=== PATIENT | female | born 1945 | race Caucasian/White ===

== ENCOUNTER → 2017-04-08 | Outpatient (CLI) | payer MEDICARE ==
[2017-04-08 08:14] LABS: CH 31.3; CHCM 32.5; HCT 35.7 % (34.0-46.0); HDW 2.37; HGB 11.6 gm/dL (11.4-16.0); MCH 31.6 pg (25.0-35.0); MCHC 32.6 g/dL (31.0-37.0); MCV 96.7 fL (80.0-100.0); Mean Platelet Volume 6.8; RBC 3.69 m/uL (3.80-5.40); RDW 12.6 % (11.5-15.5); WBC 6.1 k/uL (3.8-10.6)
[2017-04-08 08:48] LABS: Calcium 9.7 mg/dL (8.4-10.2); Potassium 4.6 mmol/L (3.5-5.1); Total Bilirubin 0.5 mg/dL (0.2-1.3); Total Protein 7.2 g/dL (6.3-8.2)
[2017-04-08 13:14] LABS: Hemoglobin A1C 6.4 % (4.2-6.1)
== END | disposition home or self-care (01) ==
LOC: LABWHC1 07:45
PROVIDERS: ATTEND Internal Medicine Critical Care Medicine
DX: E78.5 Hyperlipidemia, unspecified (principal)
CPT/HCPCS: 36415; 80053; 80061; 82306; 83036; 84439; 84443; 85027

== ENCOUNTER 2017-08-15 23:50 | Emergency (ER) | payer MEDICARE ==
[2017-08-15 23:55] VITALS: RESP 18
--- NOTE | 2017-08-16 00:34 | ED ---
Female Urogenital HPI - General Source: patient, family Mode of arrival: wheelchair Limitations: no limitations <Belinda Crowe - Last Filed: 08/16/17 02:07> <Murphy Ruth - Last Filed: 08/26/17 23:04> - General Chief complaint: Urogenital Stated complaint: kidney problems Time Seen by Provider: 08/16/17 00:01 - History of Present Illness Initial comments: 72-year-old female patient presents to emergency department today evaluation of urinary retention and a swelling and fullness near her vagina. Patient states that she has been having issues like this for the last week. She states that today was the worst for the urinary retention, states that she hasn't urinated since sometime this afternoon. States she has had increased fluid intake. She denies any dysuria, hematuria, urinary urgency, or urinary frequency. She denies any abdominal pain, nausea, vomiting, constipation, or diarrhea. Denies any hematochezia or melena. She denies any back pain, fever, chills, dizziness , weakness, headache, or visual disturbance. She is not in any pain. (Belinda Crowe) - Related Data Home Medications Medication Instructions Recorded Confirmed Dorzolamide 2% [Trusopt 2%] 1 drop BOTH EARS BID 06/30/16 08/15/17 Enalapril/Hydrochlorothiazide 1 each PO DAILY 06/30/16 08/15/17 [Vaseretic 10-25 mg] Gemfibrozil [Lopid] 600 mg PO AC-BID 06/30/16 08/15/17 amLODIPine BESYLATE/BENAZEPRIL 1 cap PO DAILY 06/30/16 08/15/17 [amLODIPine BESYLATE/BENAZEPRIL 10-20 mg] metFORMIN HCL [metFORMIN HCL ER] 750 mg PO BID 06/30/16 08/15/17 Previous Rx's Medication Instructions Recorded Albuterol Nebulized [Ventolin 2.5 mg INHALATION Q4H PRN 10 Days 06/30/16 Nebulized] nebu Fluticasone/Salmeterol [Advair 1 inhalation PO BID #1 diskus 06/30/16 500-50 Diskus] Allergies Allergy/AdvReac Type Severity Reaction Status Date / Time No Known Allergies Allergy Verified 08/15/17 23:55 Review of Systems ROS Other: All systems not noted in ROS Statement are negative. <ZulemagisselBelinda Toan - Last Filed: 08/16/17 02:07> ROS Other: All systems not noted in ROS Statement are negative. <Murphy Ruth - Last Filed: 08/26/17 23:04> ROS Statement: Those systems with pertinent positive or pertinent negative responses have been documented in the HPI. Past Medical History Past Medical History: Asthma, COPD, Diabetes Mellitus, Hyperlipidemia, Hypertension History of Any Multi-Drug Resistant Organisms: None Reported Past Surgical History: No Surgical Hx Reported Past Psychological History: No Psychological Hx Reported Smoking Status: Never smoker Past Alcohol Use History: None Reported Past Drug Use History: None Reported <Belinda Crowe - Last Filed: 08/16/17 02:07> General Exam Limitations: no limitations General appearance: alert, in no apparent distress, other (Physical well- developed, well-nourished 72-year-old female patient in no acute distress. Vital signs upon presentation temperature 98F, pulse 78, respirations 18, blood pressure 142/73, pulse ox 97% on room air.) Eye exam: Present: normal appearance, PERRL, EOMI. Absent: scleral icterus, conjunctival injection, periorbital swelling ENT exam: Present: normal exam, normal oropharynx, mucous membranes moist Respiratory exam: Present: normal lung sounds bilaterally. Absent: respiratory distress, wheezes, rales, rhonchi, stridor Cardiovascular Exam: Present: regular rate, normal rhythm, normal heart sounds. Absent: systolic murmur, diastolic murmur, rubs, gallop, clicks GI/Abdominal exam: Present: soft, normal bowel sounds. Absent: distended, tenderness, guarding, rebound, rigid External exam: Present: swelling, other (Patient does have obvious bulging at the inferior vaginal opening. Does appear consistent with rectocele. No evidence of prolapse from the vagina. ). Absent: erythema, lesions, lacerations , ecchymosis Back exam: Present: normal inspection. Absent: CVA tenderness (R), CVA tenderness (L) Neurological exam: Present: alert, oriented X3, CN II-XII intact Psychiatric exam: Present: normal affect, normal mood Skin exam: Present: warm, dry, intact, normal color. Absent: rash <Belinda Crowe - Last Filed: 08/16/17 02:07> Vital Signs 08/15/17 08/16/17 23:53 01:46 Temperature 98 F 97.9 F Pulse Rate 78 77 Respiratory 18 18 Rate Blood Pressure 142/73 146/66 O2 Sat by Pulse 97 96 Oximetry Medical Decision Making <Belinda Crowe - Last Filed: 08/16/17 02:07> <Murphy Ruth - Last Filed: 08/26/17 23:04> - Medical Decision Making 72-year-old female patient presented for evaluation of urinary retention and swelling in her vaginal area. Physical examination did reveal what appears to be a rectocele with no evidence of uterine prolapse. Bladder scan was performed and did show 400 mL of urine. Patient reported attempting to urinate all afternoon without success. We did place a Zhou catheter easily and were able to perform urinalysis. Urinalysis was negative for any acute process. Patient will be discharged home with a Zhou catheter in place. She is instructed to follow up with urology as well as gynecology as soon as possible. She did request Dr. Kay for follow-up. She is instructed to follow-up with her primary care physician for recheck as well as one to 2 days she is instructed to return here immediately for any new, worsening, or concerning symptoms. She verbalizes understanding and agrees with this plan. (Belinda Crowe) I saw this patient in conjunction with the physician assistant basketball coach. I performed independent history and physical exam. Agree with case management. (Muprhy Ruth) - Lab Data Lab Results 08/16/17 Range/Units 00:50 Urine Color Light Yellow Urine Appearance Clear (Clear) Urine pH 5.5 (5.0-8.0) Ur Specific [place] 1.005 (1.001-1.035) Urine Protein Negative (Negative) Urine Glucose (UA) Negative (Negative) Urine Ketones Negative (Negative) Urine Blood Negative (Negative) Urine Nitrite Negative (Negative) Urine Bilirubin Negative (Negative) Urine Urobilinogen <2.0 (<2.0) mg/dL Ur Leukocyte Esterase Negative (Negative) Disposition Time of Disposition: 01:47 <Belinda Crowe - Last Filed: 08/16/17 02:07> <Murphy Ruth - Last Filed: 08/26/17 23:04> Clinical Impression: Rectocele, female, Urinary retention Disposition: HOME SELF-CARE Condition: Good Instructions: Zhou Catheter Placement and Care (ED), Rectocele (ED), Acute Urinary Retention in Women (ED) Additional Instructions: Follow-up with urology and gynecology as soon as possible. Return here immediately for any new, worsening, or concerning symptoms. Referrals: Russel Woodruff DO [Primary Care Provider] - 1-2 days Byron Tubbs MD [STAFF PHYSICIAN] - 1-2 days Timmy Kay MD [STAFF PHYSICIAN] - 1-2 days
[2017-08-16 01:31] LABS: Appearance,Urine Clear (Clear); Bilirubin,Urine Negative (Negative); Glucose,Urine (UA) Negative (Negative); Ketones,Urine Negative (Negative); Leukocyte Esterase,Urine Negative (Negative); Nitrite,Urine Negative (Negative); PH, Urine 5.5 (5.0-8.0); Protein,Urine Negative (Negative); Specific Gravity,Urine 1.005 (1.001-1.035); UA Billing (MACRO vs. MICRO) CHEM; Urobilinogen,Urine <2.0 mg/dL (<2.0)
[2017-08-16 01:47] VITALS: BP 146/66; PULSE 77; TEMP 97.9
== END 2017-08-16 02:16 | disposition home or self-care (01) ==
LOC: EC 23:50
DX: K62.3 Rectal prolapse (principal); R33.9 Retention of urine, unspecified; I10 Essential (primary) hypertension; E11.9 Type 2 diabetes mellitus without complications; E78.5 Hyperlipidemia, unspecified; Z79.84 Long term (current) use of oral hypoglycemic drugs; Z79.899 Other long term (current) drug therapy
CPT/HCPCS: 51702; 51798; 81003; 99284

== ENCOUNTER → 2017-11-12 | Outpatient (CLI) | payer MEDICARE ==
[2017-11-12 09:34] LABS: Basophils # (A) 0.1 k/uL (0-0.2); Basophils % (A) 1 %; Eosinophils # (A) 0.2 k/uL (0-0.7); Eosinophils % (A) 3 %; HCT 38.1 % (34.0-46.0); HGB 12.1 gm/dL (11.4-16.0); Lymphocytes # (A) 2.4 k/uL (1.0-4.8); Lymphocytes % (A) 32 %; MCH 30.3 pg (25.0-35.0); MCHC 31.8 g/dL (31.0-37.0); MCV 95.2 fL (80.0-100.0); Mean Platelet Volume 6.7; Monocytes # (A) 0.5 k/uL (0-1.0); Monocytes % (A) 7 %; Neutrophils # (A) 4.2 k/uL (1.3-7.7); Neutrophils % (A) 55 %; Platelet Count 305 k/uL (150-450); RDW 13.9 % (11.5-15.5); WBC 7.5 k/uL (3.8-10.6)
[2017-11-12 10:07] LABS: Albumin 4.2 g/dL (3.5-5.0); Calcium 10.4 mg/dL (8.4-10.2); Potassium 4.3 mmol/L (3.5-5.1); Total Bilirubin 0.4 mg/dL (0.2-1.3); Total Protein 7.2 g/dL (6.3-8.2)
[2017-11-12 10:24] LABS: T4, Free (Free Thyroxine) 1.69 ng/dL (0.78-2.19)
[2017-11-12 17:41] LABS: Hemoglobin A1C 5.6 % (4.0-6.0)
== END | disposition home or self-care (01) ==
LOC: LABWHC1 09:09
PROVIDERS: ATTEND Internal Medicine Critical Care Medicine
DX: E78.5 Hyperlipidemia, unspecified (principal); I10 Essential (primary) hypertension; E87.1 Hypo-osmolality and hyponatremia; E11.9 Type 2 diabetes mellitus without complications; R53.83 Other fatigue
CPT/HCPCS: 36415; 80053; 82533; 83036; 84439; 84443; 85025

== ENCOUNTER → 2017-12-18 | Outpatient (CLI) | payer MEDICARE ==
[~2017-12-18] MED LIST: COSYNTROPIN 0.25 MG VIAL IM NR; COSYNTROPIN 0.25 MG VIAL IVP NR; SODIUM CHLORIDE 0.9% 500 ML in EMPTY BAG 1 BAG IV PRN
[2017-12-18 09:26] VITALS: BP 165/70; PULSE 85; RESP 16; TEMP 97.9
== END | disposition home or self-care (01) ==
LOC: PROCWHC3 08:30
PROVIDERS: ATTEND Internal Medicine Critical Care Medicine
DX: J45.909 Unspecified asthma, uncomplicated (principal)
CPT/HCPCS: 82533; 82024; 96374; 36415; J0834

== ENCOUNTER 2019-03-29 14:32 | Inpatient (IN) | payer MEDICARE ==
[2019-03-29] MEDS ORDERED: SODIUM CHLORIDE 0.9% 1,000 ML IV ONE (15:26)
--- NOTE | 2019-03-29 15:27 | ED ---
Weakness HPI - General Chief complaint: Weakness Stated complaint: Weakness Time Seen by Provider: 03/29/19 15:26 Source: patient, RN notes reviewed, old records reviewed Mode of arrival: ambulatory Limitations: no limitations - History of Present Illness Initial comments: This is a 73-year-old female the ER for evaluation. Patient presented with daughter for altered mental status history of hyponatremia. Patient herself currently denies any complaints but again this is a poor historian. No recent change in medications. Patient was found down by family today unable to amylase are sent in by her self and not answering questions are probably. History obtained from patient daughter who is at bedside MD Complaint: generalized weakness, lack of energy, difficulty walking -: unknown Location: generalized Severity: mild Severity scale (1-10): 2 Consistency: constant Improves with: none, morning Worsens with: none Associated Symptoms: confusion - Related Data Home Medications Medication Instructions Recorded Confirmed Dorzolamide 2% [Trusopt 2%] 1 drop BOTH EYES BID 06/30/16 03/29/19 Aspirin EC [Ecotrin Low Dose] 81 mg PO DAILY 10/03/17 03/29/19 Cholecalciferol [Vitamin D3 (25 1,000 unit PO DAILY 10/03/17 03/29/19 Mcg = 1000 Iu)] Fluticasone/Salmeterol [Advair 1 puff INHALATION RT-BID 10/03/17 03/29/19 500-50 Diskus] Vits A,C,E/Lutein/Minerals 1 tab PO DAILY 10/03/17 03/29/19 [Ocuvite with Lutein Tablet] Albuterol Nebulized [Ventolin 2.5 mg INHALATION RT-QID 03/29/19 03/29/19 Nebulized] Budesonide/Formoterol Fumarate 1 puff INHALATION RT-BID 03/29/19 03/29/19 [Symbicort 160-4.5 Mcg Inhaler] Montelukast [Singulair] 10 mg PO DAILY 03/29/19 03/29/19 metFORMIN HCL [Glucophage Xr] 750 mg PO DAILY 03/29/19 03/29/19 Previous Rx's Medication Instructions Recorded Lisinopril [Zestril] 20 mg PO DAILY #30 tab 10/05/17 amLODIPine [Norvasc] 10 mg PO DAILY #30 tab 10/05/17 Allergies Allergy/AdvReac Type Severity Reaction Status Date / Time No Known Allergies Allergy Verified 03/29/19 16:11 Review of Systems ROS Statement: Those systems with pertinent positive or pertinent negative responses have been documented in the HPI. ROS Other: All systems not noted in ROS Statement are negative. Past Medical History Past Medical History: Asthma, COPD, Diabetes Mellitus, Hyperlipidemia, Hypertension Additional Past Medical History / Comment(s): Chronic renal failure, bronchial asthma, chronic anemia, macular degeneration, glaucoma , hypertension, hyperlipidemia History of Any Multi-Drug Resistant Organisms: None Reported Past Surgical History: No Surgical Hx Reported Past Psychological History: No Psychological Hx Reported Smoking Status: Never smoker General Exam Limitations: altered mental status General appearance: alert, in no apparent distress Head exam: Present: atraumatic, normocephalic, normal inspection Eye exam: Present: normal appearance, PERRL, EOMI. Absent: scleral icterus, conjunctival injection, periorbital swelling ENT exam: Present: normal exam, mucous membranes moist Neck exam: Present: normal inspection. Absent: tenderness, meningismus, lymphadenopathy Respiratory exam: Present: normal lung sounds bilaterally. Absent: respiratory distress, wheezes, rales, rhonchi, stridor Cardiovascular Exam: Present: regular rate, normal rhythm, normal heart sounds. Absent: systolic murmur, diastolic murmur, rubs, gallop, clicks GI/Abdominal exam: Present: soft, normal bowel sounds. Absent: distended, tenderness, guarding, rebound, rigid Extremities exam: Present: normal inspection, full ROM, normal capillary refill. Absent: tenderness, pedal edema, joint swelling, calf tenderness Back exam: Present: normal inspection Neurological exam: Present: alert, oriented X3, CN II-XII intact Psychiatric exam: Present: normal affect, normal mood Skin exam: Present: warm, dry, intact, normal color. Absent: rash Course Vital Signs 03/29/19 03/29/19 03/29/19 14:35 15:12 18:06 Temperature 98.4 F Pulse Rate 98 89 86 Respiratory 20 18 18 Rate Blood Pressure 115/77 160/75 156/69 O2 Sat by Pulse 96 98 Oximetry - Reevaluation(s) Reevaluation #1: 03/29/19 18:55 Neck record reviewed Reevaluation #2: 03/29/19 18:55 Family at bedside spoke with family patient's daughter states patient is returned to baseline currently. Patient himself remains without complaint although also remains poor historian EKG Findings - EKG Comments: EKG Findings:: EKG shows normal sinus rhythm rate of 89, OK 160, QRS 126, QTc 511 Medical Decision Making - Medical Decision Making 73 female the ER for evaluation of weakness found down, patient is mildly elevated troponin will admit for trending of troponin. Otherwise electrodes CT brain negative for acute disease no traumatic injury noted on x-ray. Patient's mental status is currently improving - Lab Data Result diagrams: 03/29/19 16:20 03/29/19 16:20 Lab Results 03/29/19 03/29/19 03/29/19 Range/Units 15:27 16:20 16:20 WBC 8.5 (3.8-10.6) k/uL RBC 3.88 (3.80-5.40) m/uL Hgb 12.1 (11.4-16.0) gm/dL Hct 36.4 (34.0-46.0) % MCV 93.8 (80.0-100.0) fL MCH 31.1 (25.0-35.0) pg MCHC 33.1 (31.0-37.0) g/dL RDW 13.6 (11.5-15.5) % Plt Count 332 (150-450) k/uL Neutrophils % 79 % Lymphocytes % 13 % Monocytes % 5 % Eosinophils % 1 % Basophils % 1 % Neutrophils # 6.7 (1.3-7.7) k/uL Lymphocytes # 1.1 (1.0-4.8) k/uL Monocytes # 0.5 (0-1.0) k/uL Eosinophils # 0.1 (0-0.7) k/uL Basophils # 0.1 (0-0.2) k/uL PT (9.0-12.0) sec INR (<1.2) APTT (22.0-30.0) sec Sodium (137-145) mmol/L Potassium (3.5-5.1) mmol/L Chloride (98-107) mmol/L Carbon Dioxide (22-30) mmol/L Anion Gap mmol/L BUN (7-17) mg/dL Creatinine (0.52-1.04) mg/dL Est GFR (CKD-EPI)AfAm (>60 ml/min/1.73 sqM) Est GFR (CKD-EPI)NonAf (>60 ml/min/1.73 sqM) Glucose (74-99) mg/dL POC Glucose (mg/dL) 236 H (75-99) mg/dL POC Glu Riveter Helper ID Gwen Villalba Calcium (8.4-10.2) mg/dL Phosphorus (2.5-4.5) mg/dL Magnesium (1.6-2.3) mg/dL Total Bilirubin (0.2-1.3) mg/dL AST (14-36) U/L ALT (9-52) U/L Alkaline Phosphatase (38-126) U/L Ammonia <9 (<30) umol/L Creatine Kinase (30-135) U/L Troponin I (0.000-0.034) ng/mL Total Protein (6.3-8.2) g/dL Albumin (3.5-5.0) g/dL Urine Color Urine Appearance (Clear) Urine pH (5.0-8.0) Ur Specific [place] (1.001-1.035) Urine Protein (Negative) Urine Glucose (UA) (Negative) Urine Ketones (Negative) Urine Blood (Negative) Urine Nitrite (Negative) Urine Bilirubin (Negative) Urine Urobilinogen (<2.0) mg/dL Ur Leukocyte Esterase (Negative) Urine WBC (0-5) /hpf Ur Squamous Epith Cells (0-4) /hpf Urine Mucus (None) /hpf Urine Opiates Screen (NotDetected) Ur Oxycodone Screen (NotDetected) Urine Methadone Screen (NotDetected) Ur Propoxyphene Screen (NotDetected) Ur Barbiturates Screen (NotDetected) U Tricyclic Antidepress (NotDetected) Ur Phencyclidine Scrn (NotDetected) Ur Amphetamines Screen (NotDetected) U Methamphetamines Scrn (NotDetected) U Benzodiazepines Scrn (NotDetected) Urine Cocaine Screen (NotDetected) U Marijuana (THC) Screen (NotDetected) 03/29/19 03/29/19 03/29/19 Range/Units 16:20 16:20 16:20 WBC (3.8-10.6) k/uL RBC (3.80-5.40) m/uL Hgb (11.4-16.0) gm/dL Hct (34.0-46.0) % MCV (80.0-100.0) fL MCH (25.0-35.0) pg MCHC (31.0-37.0) g/dL RDW (11.5-15.5) % Plt Count (150-450) k/uL Neutrophils % % Lymphocytes % % Monocytes % % Eosinophils % % Basophils % % Neutrophils # (1.3-7.7) k/uL Lymphocytes # (1.0-4.8) k/uL Monocytes # (0-1.0) k/uL Eosinophils # (0-0.7) k/uL Basophils # (0-0.2) k/uL PT 10.0 (9.0-12.0) sec INR 0.9 (<1.2) APTT 21.6 L (22.0-30.0) sec Sodium 140 (137-145) mmol/L Potassium 4.0 (3.5-5.1) mmol/L Chloride 107 (98-107) mmol/L Carbon Dioxide 26 (22-30) mmol/L Anion Gap 7 mmol/L BUN 23 H (7-17) mg/dL Creatinine 1.19 H (0.52-1.04) mg/dL Est GFR (CKD-EPI)AfAm 52 (>60 ml/min/1.73 sqM) Est GFR (CKD-EPI)NonAf 45 (>60 ml/min/1.73 sqM) Glucose 229 H (74-99) mg/dL POC Glucose (mg/dL) (75-99) mg/dL POC Glu Riveter Helper ID Calcium 9.7 (8.4-10.2) mg/dL Phosphorus 2.6 (2.5-4.5) mg/dL Magnesium 1.6 (1.6-2.3) mg/dL Total Bilirubin 0.3 (0.2-1.3) mg/dL AST 24 (14-36) U/L ALT 16 (9-52) U/L Alkaline Phosphatase 76 (38-126) U/L Ammonia (<30) umol/L Creatine Kinase 199 H (30-135) U/L Troponin I 0.047 H* (0.000-0.034) ng/mL Total Protein 6.6 (6.3-8.2) g/dL Albumin 3.9 (3.5-5.0) g/dL Urine Color Urine Appearance (Clear) Urine pH (5.0-8.0) Ur Specific [place] (1.001-1.035) Urine Protein (Negative) Urine Glucose (UA) (Negative) Urine Ketones (Negative) Urine Blood (Negative) Urine Nitrite (Negative) Urine Bilirubin (Negative) Urine Urobilinogen (<2.0) mg/dL Ur Leukocyte Esterase (Negative) Urine WBC (0-5) /hpf Ur Squamous Epith Cells (0-4) /hpf Urine Mucus (None) /hpf Urine Opiates Screen (NotDetected) Ur Oxycodone Screen (NotDetected) Urine Methadone Screen (NotDetected) Ur Propoxyphene Screen (NotDetected) Ur Barbiturates Screen (NotDetected) U Tricyclic Antidepress (NotDetected) Ur Phencyclidine Scrn (NotDetected) Ur Amphetamines Screen (NotDetected) U Methamphetamines Scrn (NotDetected) U Benzodiazepines Scrn (NotDetected) Urine Cocaine Screen (NotDetected) U Marijuana (THC) Screen (NotDetected) 03/29/19 Range/Units 16:48 WBC (3.8-10.6) k/uL RBC (3.80-5.40) m/uL Hgb (11.4-16.0) gm/dL Hct (34.0-46.0) % MCV (80.0-100.0) fL MCH (25.0-35.0) pg MCHC (31.0-37.0) g/dL RDW (11.5-15.5) % Plt Count (150-450) k/uL Neutrophils % % Lymphocytes % % Monocytes % % Eosinophils % % Basophils % % Neutrophils # (1.3-7.7) k/uL Lymphocytes # (1.0-4.8) k/uL Monocytes # (0-1.0) k/uL Eosinophils # (0-0.7) k/uL Basophils # (0-0.2) k/uL PT (9.0-12.0) sec INR (<1.2) APTT (22.0-30.0) sec Sodium (137-145) mmol/L Potassium (3.5-5.1) mmol/L Chloride (98-107) mmol/L Carbon Dioxide (22-30) mmol/L Anion Gap mmol/L BUN (7-17) mg/dL Creatinine (0.52-1.04) mg/dL Est GFR (CKD-EPI)AfAm (>60 ml/min/1.73 sqM) Est GFR (CKD-EPI)NonAf (>60 ml/min/1.73 sqM) Glucose (74-99) mg/dL POC Glucose (mg/dL) (75-99) mg/dL POC Glu Riveter Helper ID Calcium (8.4-10.2) mg/dL Phosphorus (2.5-4.5) mg/dL Magnesium (1.6-2.3) mg/dL Total Bilirubin (0.2-1.3) mg/dL AST (14-36) U/L ALT (9-52) U/L Alkaline Phosphatase (38-126) U/L Ammonia (<30) umol/L Creatine Kinase (30-135) U/L Troponin I (0.000-0.034) ng/mL Total Protein (6.3-8.2) g/dL Albumin (3.5-5.0) g/dL Urine Color Yellow Urine Appearance Clear (Clear) Urine pH 6.0 (5.0-8.0) Ur Specific [place] 1.014 (1.001-1.035) Urine Protein 1+ H (Negative) Urine Glucose (UA) 1+ H (Negative) Urine Ketones Negative (Negative) Urine Blood Negative (Negative) Urine Nitrite Negative (Negative) Urine Bilirubin Negative (Negative) Urine Urobilinogen <2.0 (<2.0) mg/dL Ur Leukocyte Esterase Negative (Negative) Urine WBC 1 (0-5) /hpf Ur Squamous Epith Cells <1 (0-4) /hpf Urine Mucus Rare H (None) /hpf Urine Opiates Screen Not Detected (NotDetected) Ur Oxycodone Screen Not Detected (NotDetected) Urine Methadone Screen Not Detected (NotDetected) Ur Propoxyphene Screen Not Detected (NotDetected) Ur Barbiturates Screen Not Detected (NotDetected) U Tricyclic Antidepress Not Detected (NotDetected) Ur Phencyclidine Scrn Not Detected (NotDetected) Ur Amphetamines Screen Not Detected (NotDetected) U Methamphetamines Scrn Not Detected (NotDetected) U Benzodiazepines Scrn Not Detected (NotDetected) Urine Cocaine Screen Not Detected (NotDetected) U Marijuana (THC) Screen Not Detected (NotDetected) - Radiology Data Radiology results: report reviewed (CT brain x-ray chest and pelvis is negative for traumatic injury), image reviewed Disposition Clinical Impression: Dehydration, Weakness, Altered mental state, Elevated troponin Disposition: ADMITTED IP TO THIS [facility] Condition: Fair Is patient prescribed a controlled substance at d/c from ED?: No
[2019-03-29 15:29] LABS: Glucose,Whole Blood 236 mg/dL (75-99)
--- NOTE | 2019-03-29 15:56 | CT ---
EXAMINATION TYPE: CT brain wo con DATE OF EXAM: 03/29/2019 COMPARISON: None HISTORY: Altered mental status. CT DLP: 1092.9 mGycm Automated exposure control for dose reduction was used. FINDINGS: Nasal septal deviation noted there is intracranial atherosclerotic changes. Moderate generalized dege nerative change with diffuse low-attenuation the white matter. No acute hemorrhage or mass effect. Ca lvarium intact. Hyperostosis of the frontal bone noted. IMPRESSION: NO ACUTE HEMORRHAGE. DEGENERATIVE AND NONSPECIFIC WHITE MATTER CHANGES MOST TYPICAL REMOTE MICROVASCU LAR ISCHEMIA. IF THERE IS CONCERN FOR ACUTE ISCHEMIA CORRELATE WITH MRI CLINICALLY WARRANTED.
[2019-03-29 16:32] LABS: Basophils # (A) 0.1 k/uL (0-0.2); Basophils % (A) 1 %; Eosinophils # (A) 0.1 k/uL (0-0.7); Eosinophils % (A) 1 %; HCT 36.4 % (34.0-46.0); HGB 12.1 gm/dL (11.4-16.0); Lymphocytes # (A) 1.1 k/uL (1.0-4.8); Lymphocytes % (A) 13 %; MCH 31.1 pg (25.0-35.0); MCHC 33.1 g/dL (31.0-37.0); MCV 93.8 fL (80.0-100.0); Mean Platelet Volume 6.6; Monocytes # (A) 0.5 k/uL (0-1.0); Monocytes % (A) 5 %; Neutrophils # (A) 6.7 k/uL (1.3-7.7); Neutrophils % (A) 79 %; Platelet Count 332 k/uL (150-450); RBC 3.88 m/uL (3.80-5.40); RDW 13.6 % (11.5-15.5); WBC 8.5 k/uL (3.8-10.6)
[2019-03-29 16:45] LABS: Albumin 3.9 g/dL (3.5-5.0); Calcium 9.7 mg/dL (8.4-10.2); Magnesium 1.6 mg/dL (1.6-2.3); Phosphorus 2.6 mg/dL (2.5-4.5); Total Bilirubin 0.3 mg/dL (0.2-1.3); Total Protein 6.6 g/dL (6.3-8.2)
[2019-03-29 16:47] LABS: INR 0.9 (<1.2)
[2019-03-29 17:01] LABS: Appearance,Urine Clear (Clear); Bilirubin,Urine Negative (Negative); Blood,Urine Negative (Negative); Color,Urine Yellow; Glucose,Urine (UA) 1+ (Negative); Ketones,Urine Negative (Negative); Leukocyte Esterase,Urine Negative (Negative); Mucus,Urine Rare /hpf; Nitrite,Urine Negative (Negative); Protein,Urine 1+ (Negative); Specific Gravity,Urine 1.014 (1.001-1.035); Squamous Epithelial Cell,Urine <1 /hpf (0-4); Urobilinogen,Urine <2.0 mg/dL (<2.0)
[2019-03-29 17:02] LABS: Partial Thromboplastin Time 21.6 sec (22.0-30.0)
--- NOTE | 2019-03-29 17:16 | XR ---
EXAMINATION TYPE: XR pelvis AP view DATE OF EXAM: 03/29/2019 COMPARISON: NONE HISTORY: Pain after falling TECHNIQUE: Single view FINDINGS: Pelvic ring is intact. Proximal femurs and hip joints are intact. There is no sign of hip d ysplasia. Sacroiliac joints are intact. IMPRESSION: No acute abnormality of the pelvis.
--- NOTE | 2019-03-29 17:17 | XR ---
EXAMINATION TYPE: XR chest 1V DATE OF EXAM: 03/29/2019 COMPARISON: 10/03/2017 HISTORY: Weakness TECHNIQUE: Single frontal view of the chest is obtained. FINDINGS: There is no heart failure nor confluent pneumonic infiltrate. Costophrenic angles are aparna r. Thoracic aorta is atheromatous. There are chest leads. Bony thorax is intact. IMPRESSION: No active cardiopulmonary disease. Normal heart. Atheromatous aorta. No change.
[2019-03-29 17:25] LABS: Amphetamine Screen,Urine Not Detected (NotDetected); Barbiturate Screen,Urine Not Detected (NotDetected); Benzodiazepines Screen,Urine Not Detected (NotDetected); Cocaine Screen,Urine Not Detected (NotDetected); Methadone Screen, Urine Not Detected (NotDetected); Opiate Screen,Urine Not Detected (NotDetected); Oxycodone Screen, Urine Not Detected (NotDetected); Phencyclidine Screen,Urine Not Detected (NotDetected); Tricyclic Antidepressant,Urine Not Detected (NotDetected); Urn Cannabinoid Scrn Not Detected (NotDetected)
[2019-03-29] MEDS ORDERED: ASPIRIN 81 MG PO STA (17:40)
[2019-03-29] MEDS ORDERED: NITROGLYCERIN SL TABS 0.4 MG TAB SUBLINGUAL PRN (17:40)
[2019-03-29] MEDS: SODIUM CHLORIDE 0.9% 1,000 ML IV SCH (18:03)
[2019-03-29 20:25] VITALS: BMI 24.3
[2019-03-29 21:04] LABS: Glucose,Whole Blood 113 mg/dL (75-99)
[2019-03-30 01:11] LABS: Cholesterol 205 mg/dL (<200); HDL Cholesterol 49 mg/dL (40-60); LDL Cholesterol,Calculated 137 mg/dL (0-99); Triglycerides 94 mg/dL (<150)
[2019-03-30 06:40] LABS: Glucose,Whole Blood 97 mg/dL (75-99)
[2019-03-30] MEDS ORDERED: NON-FORMULARY DRUG (Fluticasone/Salmeterol [Advair 500-50 Diskus] 1 PUFF) INHALATION SCH (08:00)
[2019-03-30] MEDS: SODIUM CHLORIDE 0.9% 1,000 ML IV SCH ×2 (08:30→10:01)
[2019-03-30] MEDS: MONTELUKAST 10 MG TAB PO SCH (08:33)
[2019-03-30] MEDS: metFORMIN 500 MG TAB PO SCH ×2 (08:33→20:13)
[2019-03-30] MEDS: CHOLECALCIFEROL 1,000 UNIT TAB PO SCH (08:33)
[2019-03-30] MEDS: ATORVASTATIN 80 MG TAB PO SCH (08:34)
[2019-03-30] MEDS: amLODIPine 10 MG TAB PO SCH (08:34)
[2019-03-30] MEDS: LISINOPRIL 20 MG TAB PO SCH (08:34)
[2019-03-30] MEDS: DORZOLAMIDE HCL 2% DROPS 10 ML BTL BOTH EYES SCH ×2 (08:35→20:13)
[2019-03-30] MEDS: SYMBICORT 160-4.5 MCG INHALER INHALATION SCH ×2 (08:41→19:00)
[2019-03-30] MEDS: ALBUTEROL NEBULIZED 2.5 MG/3 ML INHALATION SCH ×4 (08:41→19:00)
--- NOTE | 2019-03-30 08:53 | P.CRDCN ---
History of Present Illness Consult date: 03/30/19 Requesting physician: Karolina Saul Reason for Consult (text): abn trop Chief complaint: Fall, mental status changes History of present illness: This is a pleasant 73-year-old female with history of hypertension, diabetes, hyperlipidemia, asthma, COPD, chronic anemia, who had a hospit alization a few years ago because of hyponatremia. She lives with her daughter. Patient apparently had fell or slipped out of her bed, she was found on the floor, family noted that her mental status was not as her usual. According to the daughter it reminded her of when her moms sodium was low in the past. For this reason they brought her to the emergency room for further evaluation and treatment. Patient denies having any dizziness or lightheadedness, no chest discomfort, she is unsure exactly of what happened. A CAT scan of the brain was performed on arrival here which did not reveal any acute hemorrhage. Nonspecific white matter changes most typical of remote microvascular ischemia noted. Chest x-ray did not reveal any active cardiopulmonary disease. X-ray of the pelvis did not reveal any acute abnormality. EKG on presentation here showed a normal sinus rhythm with a right bundle branch block pattern and nonspecific ST-T wave changes. I pressure on arrival here 115/77 with a heart rate in the 90s, 96% on room air. I pressure this morning 162/74 with a heart rate in the 80s, 96% on room air. Blood cell count is normal, hemoglobin 12.1, platelet count 332. Sodium 140, potassium 4.0, BUN 23 and creatinine 1.1. Troponins 0.047, 0.045, 0.034. Cholesterol 205, LDL 137, HDL 49 and triglycerides 94. At the time of my examination this morning, the patient is sitting up in her chair at bedside, daughter is present. She is alert and oriented 3, denies any dizziness or lightheadedness, no chest discomfort, no palpitations or shortness of breath. Cardiology consultation was requested because of abnormality in troponin. Past Medical History Past Medical History: Asthma, COPD, Diabetes Mellitus, Hyperlipidemia, Hypertension Additional Past Medical History / Comment(s): Chronic renal failure, bronchial asthma, chronic anemia, macular degeneration, glaucoma , hypertension, hyperlipidemia History of Any Multi-Drug Resistant Organisms: None Reported Past Surgical History: No Surgical Hx Reported Past Anesthesia/Blood Transfusion Reactions: No Reported Reaction Past Psychological History: No Psychological Hx Reported Smoking Status: Never smoker Past Alcohol Use History: None Reported Past Drug Use History: None Reported - Past Family History Mother Family Medical History: CVA/TIA Father Family Medical History: Coronary Artery Disease (CAD) Medications and Allergies Home Medications Medication Instructions Recorded Confirmed Type Dorzolamide 2% [Trusopt 2%] 1 drop BOTH EYES BID 06/30/16 03/29/19 History Aspirin EC [Ecotrin Low Dose] 81 mg PO DAILY 10/03/17 03/29/19 History Cholecalciferol [Vitamin D3 (25 1,000 unit PO DAILY 10/03/17 03/29/19 History Mcg = 1000 Iu)] Fluticasone/Salmeterol [Advair 1 puff INHALATION RT-BID 10/03/17 03/29/19 History 500-50 Diskus] Vits A,C,E/Lutein/Minerals 1 tab PO DAILY 10/03/17 03/29/19 History [Ocuvite with Lutein Tablet] Lisinopril [Zestril] 20 mg PO DAILY #30 tab 10/05/17 03/29/19 Rx amLODIPine [Norvasc] 10 mg PO DAILY #30 tab 10/05/17 03/29/19 Rx Albuterol Nebulized [Ventolin 2.5 mg INHALATION RT-QID 03/29/19 03/29/19 History Nebulized] Budesonide/Formoterol Fumarate 1 puff INHALATION RT-BID 03/29/19 03/29/19 History [Symbicort 160-4.5 Mcg Inhaler] Montelukast [Singulair] 10 mg PO DAILY 03/29/19 03/29/19 History metFORMIN HCL [Glucophage Xr] 750 mg PO BID 03/29/19 03/29/19 History Allergies Allergy/AdvReac Type Severity Reaction Status Date / Time No Known Allergies Allergy Verified 03/29/19 16:11 Physical Exam Vitals: Vital Signs Temp Pulse Pulse Resp BP BP Pulse Ox 03/30/19 08:00 98.1 F 86 18 162/75 96 03/30/19 04:00 98.2 F 80 18 163/70 92 L 03/30/19 00:00 98.5 F 76 18 146/75 96 03/29/19 20:00 98.7 F 86 18 186/87 96 03/29/19 18:06 86 18 156/69 03/29/19 15:12 89 18 160/75 98 03/29/19 14:35 98.4 F 98 20 115/77 96 Intake and Output 03/29/19 03/30/19 03/30/19 22:59 06:59 14:59 Output Total 900 Balance -900 Output: Urine 900 Straight 900 Other: Voiding Method Toilet Toilet Toilet Diaper Diaper Diaper Incontinent Incontinent Incontinent # Voids 3 Weight 68.5 kg PHYSICAL EXAMINATION: GENERAL: 73-year-old female in no acute distress at the time of my examination HEENT: Head is atraumatic, normocephalic. Pupils equal, round. Sclera anicteric. Conjunctiva are clear. Mucous membranes of the mouth are moist. Neck is supple. There is no elevated jugular venous pressure.No Carotid bruit is heard. HEART EXAMINATION: Heart S1 and S2 1 systolic murmur is heard CHEST EXAMINATION: Lungs are clear to auscultation and precussion. No chest wall tenderness is noted on palpation or with deep breathing. ABDOMEN: Soft, nontender. Bowel sounds are heard. No organomegaly noted. EXTREMITIES: 2+ peripheral pulses with no evidence of peripheral edema and no calf tenderness noted. NEUROLOGIC patient is awake, alert and oriented 3 . . Results 03/29/19 16:20 03/29/19 16:20 Cardiac Enzymes 03/29/19 03/29/19 03/29/19 Range/Units 16:20 16:20 22:11 AST 24 (14-36) U/L Troponin I 0.047 H* 0.045 H* (0.000-0.034) ng/mL 03/30/19 Range/Units 04:06 AST (14-36) U/L Troponin I 0.034 (0.000-0.034) ng/mL Coagulation 03/29/19 Range/Units 16:20 PT 10.0 (9.0-12.0) sec APTT 21.6 L (22.0-30.0) sec Lipids 03/29/19 Range/Units 16:20 Triglycerides 94 (<150) mg/dL Cholesterol 205 H (<200) mg/dL HDL Cholesterol 49 (40-60) mg/dL CBC 03/29/19 Range/Units 16:20 WBC 8.5 (3.8-10.6) k/uL RBC 3.88 (3.80-5.40) m/uL Hgb 12.1 (11.4-16.0) gm/dL Hct 36.4 (34.0-46.0) % Plt Count 332 (150-450) k/uL Comprehensive Metabolic Panel 03/29/19 Range/Units 16:20 Sodium 140 (137-145) mmol/L Potassium 4.0 (3.5-5.1) mmol/L Chloride 107 (98-107) mmol/L Carbon Dioxide 26 (22-30) mmol/L BUN 23 H (7-17) mg/dL Creatinine 1.19 H (0.52-1.04) mg/dL Glucose 229 H (74-99) mg/dL Calcium 9.7 (8.4-10.2) mg/dL AST 24 (14-36) U/L ALT 16 (9-52) U/L Alkaline Phosphatase 76 (38-126) U/L Total Protein 6.6 (6.3-8.2) g/dL Albumin 3.9 (3.5-5.0) g/dL Current Medications Generic Name Dose Route Start Last Admin Trade Name Freq PRN Reason Stop Dose Admin Albuterol Sulfate 2.5 mg 03/30/19 08:00 Ventolin Nebulized INHALATION RT-QID [facility] Amlodipine Besylate 10 mg 03/30/19 09:00 Norvasc PO DAILY [facility] Aspirin 325 mg 03/30/19 09:00 Aspirin PO DAILY [facility] Atorvastatin Calcium 80 mg 03/30/19 09:00 Lipitor PO DAILY [facility] Budesonide/Formoterol Fumarate 1 puff 03/30/19 08:00 Symbicort 160-4.5 Mcg Inhaler INHALATION RT-BID [facility] Cholecalciferol 1,000 unit 03/30/19 09:00 Vitamin D3 (25 Mcg = 1000 Iu) PO DAILY [facility] Dorzolamide HCl 1 drops 03/30/19 09:00 Trusopt BOTH EYES BID [facility] Sodium Chloride 1,000 mls @ 100 mls/hr 03/29/19 17:45 03/30/19 08:30 Saline 0.9% IV Not Given .Q10H [facility] Lisinopril 20 mg 03/30/19 09:00 Zestril PO DAILY [facility] Metformin HCl 1,000 mg 03/30/19 09:00 Glucophage PO BID [facility] Montelukast Sodium 10 mg 03/30/19 09:00 Singulair PO DAILY [facility] Nitroglycerin 0.4 mg 03/29/19 17:40 Nitrostat SUBLINGUAL Q5M PRN Chest Pain Intake and Output 03/29/19 03/30/19 03/30/19 22:59 06:59 14:59 Output Total 900 Balance -900 Output: Urine 900 Straight 900 Other: Voiding Method Toilet Toilet Toilet Diaper Diaper Diaper Incontinent Incontinent Incontinent # Voids 3 Weight 68.5 kg 03/29/19 16:20 03/29/19 16:20 EKG Interpretations (text) EKG shows normal sinus rhythm with a right bundle branch block pattern and nonspecific ST-T wave changes. Assessment and Plan Plan: Assessment and plan #1 mental status changes with a questionable fall versus syncope. CAT scan of the brain did not reveal any acute finding #2 hypertension history #3 mildly abnormal troponin, not suggestive of acute coronary syndrome with a significant rise and fall pattern, patient denies having any chest discomfort. #4 diabetes #5 hyperlipidemia #6 mild dementia #7 mildly hydration #8 history of hyponatremia in the past Plan Will obtain an echocardiogram with Doppler study. Decrease aspirin to 81 mg daily, continue Lipitor, Zestril. Patient also has received hydration and is currently getting IV fluids at 100 mL per hour. We'll check orthostatic heart rate and blood pressure every shift. Further recommendations to follow. DNP note has been reviewed, I agree with a documented findings and plan of care. Patient was seen and examined.
[2019-03-30] MEDS ORDERED: NON-FORMULARY DRUG (Aspirin Ec 81 MG) PO SCH (09:00)
[2019-03-30] MEDS ORDERED: ASPIRIN 325 MG TAB PO SCH (09:00)
[2019-03-30] MEDS: ASPIRIN 81 MG PO SCH (09:41)
[2019-03-30 11:53] LABS: Glucose,Whole Blood 148 mg/dL (75-99)
--- NOTE | 2019-03-30 13:51 | P.CNNES ---
History of Present Illness Consult date: 03/30/19 Reason for Consult: Altered mental status History of Present Illness: Patient is a 73-year-old female with history of diabetes, states that she a pparently fell out of bed on the floor at 7:30 AM yesterday (wakes up usually at 9 AM). Patient denies loss of consciousness, but does not remember how she got to the floor. She states she probably stood up to go to the bathroom, but somehow she fell. Patient lost control of stools. There was no tongue bite. Patient's daughter felt it was low sugar, gave her some food to eat, and she didn't feel better. However patient's daughter did not check her blood sugar at that time. There were no reported stroke like symptoms, like facial droop, slurred speech, problem with the vision, numbness tingling or focal weakness. Patient does have diabetes for 20 years. No history of seizures. Patient has COPD. Patient does get dizzy sometimes if she bends over and comes up too fast. Patient does have balance issues and always uses an assistive device, either walker or a cane. Patient takes metformin 1000 mg twice a day. Patient believes that she did take her dinner the night prior. Past Medical History Past Medical History: Asthma, COPD, Diabetes Mellitus, Hyperlipidemia, Hypertension Additional Past Medical History / Comment(s): Chronic renal failure, bronchial asthma, chronic anemia, macular degeneration, glaucoma , hypertension, hyperlipidemia History of Any Multi-Drug Resistant Organisms: None Reported Past Surgical History: No Surgical Hx Reported Past Anesthesia/Blood Transfusion Reactions: No Reported Reaction Past Psychological History: No Psychological Hx Reported Smoking Status: Never smoker Past Alcohol Use History: None Reported Past Drug Use History: None Reported - Past Family History Mother Family Medical History: CVA/TIA Father Family Medical History: Coronary Artery Disease (CAD) Medications and Allergies Home Medications Medication Instructions Recorded Confirmed Type Dorzolamide 2% [Trusopt 2%] 1 drop BOTH EYES BID 06/30/16 03/29/19 History Aspirin EC [Ecotrin Low Dose] 81 mg PO DAILY 10/03/17 03/29/19 History Cholecalciferol [Vitamin D3 (25 1,000 unit PO DAILY 10/03/17 03/29/19 History Mcg = 1000 Iu)] Fluticasone/Salmeterol [Advair 1 puff INHALATION RT-BID 10/03/17 03/29/19 History 500-50 Diskus] Vits A,C,E/Lutein/Minerals 1 tab PO DAILY 10/03/17 03/29/19 History [Ocuvite with Lutein Tablet] Lisinopril [Zestril] 20 mg PO DAILY #30 tab 10/05/17 03/29/19 Rx amLODIPine [Norvasc] 10 mg PO DAILY #30 tab 10/05/17 03/29/19 Rx Albuterol Nebulized [Ventolin 2.5 mg INHALATION RT-QID 03/29/19 03/29/19 History Nebulized] Budesonide/Formoterol Fumarate 1 puff INHALATION RT-BID 03/29/19 03/29/19 History [Symbicort 160-4.5 Mcg Inhaler] Montelukast [Singulair] 10 mg PO DAILY 03/29/19 03/29/19 History metFORMIN HCL [Glucophage Xr] 750 mg PO BID 03/29/19 03/29/19 History Allergies Allergy/AdvReac Type Severity Reaction Status Date / Time No Known Allergies Allergy Verified 03/29/19 16:11 Physical Examination - Vital Signs Vital Signs: Vital Signs Temp Pulse Pulse Resp BP BP BP 03/30/19 12:00 88 03/30/19 11:49 84 03/30/19 11:18 98.1 F 81 18 03/30/19 08:55 88 03/30/19 08:47 92 03/30/19 08:46 164/81 148/68 03/30/19 08:00 98.1 F 86 18 03/30/19 04:00 98.2 F 80 18 03/30/19 00:00 98.5 F 76 18 03/29/19 20:00 98.7 F 86 18 03/29/19 18:06 86 18 156/69 03/29/19 15:12 89 18 160/75 03/29/19 14:35 98.4 F 98 20 115/77 BP BP Pulse Ox 03/30/19 12:00 03/30/19 11:49 03/30/19 11:18 130/66 97 03/30/19 08:55 03/30/19 08:47 03/30/19 08:46 176/73 03/30/19 08:00 162/75 96 03/30/19 04:00 163/70 92 L 03/30/19 00:00 146/75 96 03/29/19 20:00 186/87 96 03/29/19 18:06 03/29/19 15:12 98 03/29/19 14:35 96 Intake and Output 03/29/19 03/30/19 03/30/19 22:59 06:59 14:59 Output Total 900 Balance -900 Output: Urine 900 Straight 900 Other: Voiding Method Toilet Toilet Toilet Diaper Diaper Diaper Incontinent Incontinent Incontinent # Voids 3 Weight 68.5 kg On examination patient is an elderly female, very pleasant in no acute distress. Patient is alert and awake, fully oriented. Patient is slightly hard of hearing. Edentulous. Patient has bilateral carotid bruit. No murmur. Speech and language functions are normal. Attention and concentration fund of knowledge is adequate. On cranial nerve examination, pupils are round and reactive to light, visual bertrand are full, extraocular muscles are intact. Face is symmetric and tongue protrudes the midline on muscle strength testing there is no drift and the strength is normal in arms and legs distally and proximally reflexes symmetric and plantars downgoing. Sensory to touch is equal. No ataxia for [id number], tone and bulk of muscles normal. Gait deferred. Results Hemoglobin A1c 5.6 on 11/12/2017. B12 225 on 09/17/2015. TFTs normal in November 2017. Urine negative for any infection. Urine drug screen negative. - Laboratory Findings CBC and BMP: 03/29/19 16:20 03/29/19 16:20 Abnormal Lab Findings: Abnormal Labs 03/29/19 03/29/19 03/29/19 15:27 16:20 16:20 APTT 21.6 L BUN 23 H Creatinine 1.19 H Glucose 229 H POC Glucose (mg/dL) 236 H Creatine Kinase 199 H Troponin I Cholesterol LDL Cholesterol, Calc Urine Protein Urine Glucose (UA) Urine Mucus 03/29/19 03/29/19 03/29/19 16:20 16:20 16:48 APTT BUN Creatinine Glucose POC Glucose (mg/dL) Creatine Kinase Troponin I 0.047 H* Cholesterol 205 H LDL Cholesterol, Calc 137 H Urine Protein 1+ H Urine Glucose (UA) 1+ H Urine Mucus Rare H 03/29/19 03/29/19 03/30/19 21:03 22:11 11:27 APTT BUN Creatinine Glucose POC Glucose (mg/dL) 113 H 148 H Creatine Kinase Troponin I 0.045 H* Cholesterol LDL Cholesterol, Calc Urine Protein Urine Glucose (UA) Urine Mucus Assessment and Plan Assessment: * Status post fall with some loss of memory, possible due to hypoglycemia. No evidence of TIA/CVA. * Diabetes, very well controlled. Last A1c 5.6 on 11/12/2017 * Bilateral carotid bruit. * Gait dysfunction, rule out Vitamin B12 insufficiency. Her previous B12 was borderline 225 on 09/17/2015. Plan: * We will check B12 to rule out deficiency. Hemoglobin A1c to assess for control of diabetes. * Watch for episodes of hypoglycemia. * Carotid Doppler to rule out carotid stenosis. * Continue aspirin 81 mg and Lipitor.
--- NOTE | 2019-03-30 14:06 | P.HPIM ---
History of Present Illness This is a pleasant 73 years old female with past medical history of asthma, COPD, type 2 diabetes mellitus, hypertension, hyperlipidemia, diabetic nephropathy, glaucoma and macular degeneration. Patient was sent by family for altered mental status. Also patient slipped out of her bit with suspected fall. Patient herself cannot remember what happened. Family at bedside who lives with her included the daughter states she was fine the day before with no problems eating and drinking however they found her on the floor trying to get to the bathroom, there was suspicion she fell or syncopized however she was delirious, may give her some sugar to see if they can bring her sugar up but she did not improve so decided to come to emergency room, however yesterday evening patient regained her usual consciousness and she is back to herself. Currently patient states she is at her usual state with no specific complaints but she cannot remember what happened. She denies chest pain or dyspnea. No abdominal pain. No change in urine or bowel habits. Vitals are stable. Patient is afebrile. Labs are reviewed, with CBC and BMP were unremarkable. Creatinine 1.19, compared to before was 1.3-1.6. Sodium is 140. Liver enzymes elevated. Ammonia level is less than 9. Troponin is 0.04. Urine analysis is not suspicious for infection. Urinary tract screen is negative. INR 0.9. CAT scan of the head is negative for acute process or hemorrhage and showing chronic ischemic changes. Chest x-ray: No acute process. Pelvic x-ray: No acute fracture radiologist report. Patient already has been evaluated by neurologist, suspect hypoglycemic episodes. Hemoglobin A1c 5.6%. Also recommended to check B12 level and hemoglobin A1c. Continue with Accu-Chek and carotid Doppler. And to continue with aspirin and Lipitor. Well rejogger Review of Systems CONSTITUTIONAL: No fever, no malaise, no fatigue. HEENT: No recent visual problems or hearing problems. Denied any sore throat. CARDIOVASCULAR: No orthopnea, PND, no palpitations, no syncope. PULMONARY: No shortness of breath, no cough, no hemoptysis. GASTROINTESTINAL: No diarrhea, no nausea, no vomiting, no abdominal pain. Norm oactive bowel sounds. NEUROLOGICAL: No headaches, no weakness, no numbness. HEMATOLOGICAL: Denies any bleeding or petechiae. GENITOURINARY: Denies any burning micturition, frequency, or urgency. MUSCULOSKELETAL/RHEUMATOLOGICAL: Denies any joint pain, swelling, or any muscle pain. ENDOCRINE: Denies any polyuria or polydipsia. Past Medical History Past Medical History: Asthma, COPD, Diabetes Mellitus, Hyperlipidemia, Hypertension Additional Past Medical History / Comment(s): Chronic renal failure, bronchial asthma, chronic anemia, macular degeneration, glaucoma , hypertension, hyperlipidemia History of Any Multi-Drug Resistant Organisms: None Reported Past Surgical History: No Surgical Hx Reported Past Anesthesia/Blood Transfusion Reactions: No Reported Reaction Past Psychological History: No Psychological Hx Reported Smoking Status: Never smoker Past Alcohol Use History: None Reported Past Drug Use History: None Reported - Past Family History Mother Family Medical History: CVA/TIA Father Family Medical History: Coronary Artery Disease (CAD) Medications and Allergies Home Medications Medication Instructions Recorded Confirmed Type Dorzolamide 2% [Trusopt 2%] 1 drop BOTH EYES BID 06/30/16 03/29/19 History Aspirin EC [Ecotrin Low Dose] 81 mg PO DAILY 10/03/17 03/29/19 History Cholecalciferol [Vitamin D3 (25 1,000 unit PO DAILY 10/03/17 03/29/19 History Mcg = 1000 Iu)] Fluticasone/Salmeterol [Advair 1 puff INHALATION RT-BID 10/03/17 03/29/19 History 500-50 Diskus] Vits A,C,E/Lutein/Minerals 1 tab PO DAILY 10/03/17 03/29/19 History [Ocuvite with Lutein Tablet] Lisinopril [Zestril] 20 mg PO DAILY #30 tab 10/05/17 03/29/19 Rx amLODIPine [Norvasc] 10 mg PO DAILY #30 tab 10/05/17 03/29/19 Rx Albuterol Nebulized [Ventolin 2.5 mg INHALATION RT-QID 03/29/19 03/29/19 History Nebulized] Budesonide/Formoterol Fumarate 1 puff INHALATION RT-BID 03/29/19 03/29/19 Hi story [Symbicort 160-4.5 Mcg Inhaler] Montelukast [Singulair] 10 mg PO DAILY 03/29/19 03/29/19 History metFORMIN HCL [Glucophage Xr] 750 mg PO BID 03/29/19 03/29/19 History Allergies Allergy/AdvReac Type Severity Reaction Status Date / Time No Known Allergies Allergy Verified 03/29/19 16:11 Physical Exam Vitals: Vital Signs Temp Pulse Pulse Resp BP BP BP 03/30/19 12:00 88 03/30/19 11:49 84 03/30/19 11:18 98.1 F 81 18 03/30/19 08:55 88 03/30/19 08:47 92 03/30/19 08:46 164/81 148/68 03/30/19 08:00 98.1 F 86 18 03/30/19 04:00 98.2 F 80 18 03/30/19 00:00 98.5 F 76 18 03/29/19 20:00 98.7 F 86 18 03/29/19 18:06 86 18 156/69 03/29/19 15:12 89 18 160/75 03/29/19 14:35 98.4 F 98 20 115/77 BP BP Pulse Ox 03/30/19 12:00 03/30/19 11:49 03/30/19 11:18 130/66 97 03/30/19 08:55 03/30/19 08:47 03/30/19 08:46 176/73 03/30/19 08:00 162/75 96 03/30/19 04:00 163/70 92 L 03/30/19 00:00 146/75 96 03/29/19 20:00 186/87 96 03/29/19 18:06 03/29/19 15:12 98 03/29/19 14:35 96 Intake and Output 03/29/19 03/30/19 03/30/19 22:59 06:59 14:59 Output Total 900 Balance -900 Output: Urine 900 Straight 900 Other: Voiding Method Toilet Toilet Toilet Diaper Diaper Diaper Incontinent Incontinent Incontinent # Voids 3 Weight 68.5 kg GENERAL: The patient is alert and oriented x3, not in any acute distress. Well developed, well nourished. HEENT: Pupils are round and equally reacting to light. EOMI. No scleral icterus. No conjunctival pallor. Normocephalic, atraumatic. No pharyngeal erythema. No thyromegaly. CARDIOVASCULAR: S1 and S2 present. No murmurs, rubs, or gallops. PULMONARY: Chest is clear to auscultation, no wheezing or crackles. ABDOMEN: Soft, nontender, nondistended, normoactive bowel sounds. No palpable organomegaly. MUSCULOSKELETAL: No joint swelling or deformity. EXTREMITIES: No cyanosis, clubbing, or pedal edema. NEUROLOGICAL: Gross neurological examination did not reveal any focal deficits. SKIN: No rashes. Results CBC & Chem 7: 03/29/19 16:20 03/29/19 16:20 Labs: Abnormal Lab Results - Last 24 Hours (Table) 03/29/19 03/29/19 03/29/19 Range/Units 15:27 16:20 16:20 APTT 21.6 L (22.0-30.0) sec BUN 23 H (7-17) mg/dL Creatinine 1.19 H (0.52-1.04) mg/dL Glucose 229 H (74-99) mg/dL POC Glucose (mg/dL) 236 H (75-99) mg/dL Creatine Kinase 199 H (30-135) U/L Troponin I (0.000-0.034) ng/mL Cholesterol (<200) mg/dL LDL Cholesterol, Calc (0-99) mg/dL Urine Protein (Negative) Urine Glucose (UA) (Negative) Urine Mucus (None) /hpf 03/29/19 03/29/19 03/29/19 Range/Units 16:20 16:20 16:48 APTT (22.0-30.0) sec BUN (7-17) mg/dL Creatinine (0.52-1.04) mg/dL Glucose (74-99) mg/dL POC Glucose (mg/dL) (75-99) mg/dL Creatine Kinase (30-135) U/L Troponin I 0.047 H* (0.000-0.034) ng/mL Cholesterol 205 H (<200) mg/dL LDL Cholesterol, Calc 137 H (0-99) mg/dL Urine Protein 1+ H (Negative) Urine Glucose (UA) 1+ H (Negative) Urine Mucus Rare H (None) /hpf 03/29/19 03/29/19 03/30/19 Range/Units 21:03 22:11 11:27 APTT (22.0-30.0) sec BUN (7-17) mg/dL Creatinine (0.52-1.04) mg/dL Glucose (74-99) mg/dL POC Glucose (mg/dL) 113 H 148 H (75-99) mg/dL Creatine Kinase (30-135) U/L Troponin I 0.045 H* (0.000-0.034) ng/mL Cholesterol (<200) mg/dL LDL Cholesterol, Calc (0-99) mg/dL Urine Protein (Negative) Urine Glucose (UA) (Negative) Urine Mucus (None) /hpf Thrombosis Risk Factor Assmnt - Choose All That Apply Any of the Below Risk Factors Present?: Yes Each Factor Represents 1 point: Abnormal pulmonary function (COPD) Other Risk Factors: Yes Each Risk Factor Represents 3 Points: Age 75 years or older Other congenital or acquired thrombophilia - If yes, enter type in comment: No Thrombosis Risk Factor Assessment Total Risk Factor Score: 4 Thrombosis Risk Factor Assessment Level: Moderate Risk Assessment and Plan Assessment: Altered mental status Suspected fall secondary to above, versus syncope Possible Dehydration, patient improved after she was started on IV fluids History of COPD/asthma Type 2 diabetes mellitus Hypertension Hyperlipidemia Diabetic nephropathy History of glaucoma and macular degeneration of the eyes Plan: This is a pleasant 73 years old female who presents with altered mental status. Neurologist recommended check B12, Hb A1c, check carotid Doppler and monitor glucose. Continue with aspirin. Current it is recommended to check orthostasis and continue with a fluid. Check echocardiogram. Labs and medication were reviewed.. Continue same treatment. Continue with symptomatic treatment. Resume home medication. Monitor lytes and vitals. DVT and GI prophylaxis. Further recommendations of the clinical course of the patient DVT prophylaxis: Subcutaneous heparin GI Prophylaxis: Pepcid PT/OT: Pending Prognosis is guarded
[2019-03-30] MEDS: FAMOTIDINE 20 MG/2 ML VIAL IV SCH (16:28)
--- NOTE | 2019-03-30 16:53 | US ---
EXAMINATION TYPE: US carotid duplex BILAT DATE OF EXAM: 03/30/2019 COMPARISON: NONE CLINICAL HISTORY: Status post fall, syncope. Confusion, weakness, syncope EXAM MEASUREMENTS: RIGHT: Peak Systolic Velocity (PSV) cm/sec ----- Right CCA: 77.9 ----- Right ICA: 68.0 ----- Right ECA: 208.8 ICA/CCA ratio: 0.9 RIGHT: End Diastole cm/sec ----- Right CCA: 7.6 ----- Right ICA: 9.8 ----- Right ECA: 10.9 LEFT: Peak Systolic Velocity (PSV) cm/sec ----- Left CCA: 95.1 ----- Left ICA: 146.1 ----- Left ECA: 222.7 ICA/CCA ratio: 1.5 LEFT: End Diastole cm/sec ----- Left CCA: 10.4 ----- Left ICA: 25.3 ----- Left ECA: 0.0 VERTEBRALS (direction of flow): Right Vertebral: Antegrade Left Vertebral: Antegrade Rhythm: Normal Moderate plaque bilateral bifurcations. Increased velocities bilateral ECA's and left ICA IMPRESSION: 1. Moderate plaque bilaterally with no significant hemodynamic stenosis by carotid Doppler ultrasound . Criteria for Assigning % of Stenosis / Diameter reduction (Estimation based on the indirect measurements of the internal carotid artery velocities (ICA PSV). 1. Normal (no stenosis)=ICA PSV < 125 cm/s: ratio < 2.0: ICA EDV<40 cm/s. 2. Less than 50% stenosis=ICA PSV < 125 cm/s: ratio < 2.0: ICA EDV<40 cm/s. 3. 50 to 69% stenosis=ICA PSV of 125 to 230 cm/s: ration 2.0 ? 4.0: ICA EDV 40-100 cm/s. 4. Greater than 70% stenosis to near occlusion= ICA PSV > 230 cm/s: ratio > 4.0: ICA EDV > 100 cm/s. 5. Near occlusion= ICA PSV velocities may be low or undetectable: variable ratio and ICA EDV. 6. Total occlusion=unable to detect flow.
[2019-03-30 17:16] LABS: Glucose,Whole Blood 151 mg/dL (75-99)
[2019-03-30 20:12] LABS: Glucose,Whole Blood 189 mg/dL (75-99)
[2019-03-30] MEDS: HEPARIN SODIUM,PORCINE 5,000 UNIT/ML 1 ML VIAL SQ SCH (20:13)
[2019-03-30] MEDS ORDERED: FAMOTIDINE 20 MG/2 ML VIAL IV SCH (21:00)
[2019-03-30 21:13] LABS: Hemoglobin A1C 6.2 % (4.0-6.0)
[2019-03-30] MEDS ORDERED: CYANOCOBALAMIN 1,000 MCG/ML 1 ML VIAL IM ONE (21:34)
[2019-03-31] MEDS ORDERED: ONDANSETRON 4 MG/2 ML VIAL IVP PRN (00:16)
[2019-03-31 06:14] LABS: Calcium 8.8 mg/dL (8.4-10.2); Potassium 3.8 mmol/L (3.5-5.1)
[2019-03-31] MEDS: SODIUM CHLORIDE 0.9% 1,000 ML IV SCH ×3 (06:38→20:43)
[2019-03-31] MEDS ORDERED: CYANOCOBALAMIN 500 MCG TAB PO SCH (09:00)
[2019-03-31] MEDS: SYMBICORT 160-4.5 MCG INHALER INHALATION SCH ×2 (09:16→21:51)
[2019-03-31] MEDS: ALBUTEROL NEBULIZED 2.5 MG/3 ML INHALATION SCH ×4 (09:16→21:51)
--- NOTE | 2019-03-31 09:23 | P.PN ---
Subjective This is a pleasant 73 years old female with past medical history of asthma, COPD, type 2 diabetes mellitus, hypertension, hyperlipidemia, diabetic n ephropathy, glaucoma and macular degeneration. Patient was sent by family for altered mental status. Also patient slipped out of her bit with suspected fall. Patient herself cannot remember what happened. Family at bedside who lives with her included the daughter states she was fine the day before with no problems eating and drinking however they found her on the floor trying to get to the bathroom, there was suspicion she fell or syncopized however she was delirious, may give her some sugar to see if they can bring her sugar up but she did not improve so decided to come to emergency room, however yesterday evening patient regained her usual consciousness and she is back to herself. Currently patient states she is at her usual state with no specific complaints but she cannot remember what happened. She denies chest pain or dyspnea. No abdominal pain. No change in urine or bowel habits. Vitals are stable. Patient is afebrile. Labs are reviewed, with CBC and BMP were unremarkable. Creatinine 1.19, compared to before was 1.3-1.6. Sodium is 140. Liver enzymes elevated. Ammonia level is less than 9. Troponin is 0.04. Urine analysis is not suspicious for infection. Urinary tract screen is negative. INR 0.9. CAT scan of the head is negative for acute process or hemorrhage and showing chronic ischemic changes. Chest x-ray: No acute process. Pelvic x-ray: No acute fracture radiologist report. Patient already has been evaluated by neurologist, suspect hypoglycemic episodes. Hemoglobin A1c 5.6%. Also recommended to check B12 level and hemoglobin A1c. Continue with Accu-Chek and carotid Doppler. And to continue with aspirin and Lipitor. 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 After undermining her she is in the hospital she could recognize it is [facility]. She denies chest pain or dyspnea. No abdominal pain or nausea vomiting. No change in urine or bowel habits. Neurology input is appreciated. Workup showing low vitamin B12 at 147. She got one injection of vitamin B12 yesterday and replacement was started. Cholesterol was mildly elevated. She is on Lipitor 80 mg daily. Patient is hemodynamically stable, afebrile. Creatinine slightly improved from 1.19 down to 1.05. Sugar is controlled c urrently. Troponin has been elevated and greens laborer evaluated patient and recommended echocardiogram. CONSTITUTIONAL: No fever, no malaise, no fatigue. HEENT: No recent visual problems or hearing problems. Denied any sore throat. CARDIOVASCULAR: No orthopnea, PND, no palpitations, no syncope. PULMONARY: No shortness of breath, no cough, no hemoptysis. GASTROINTESTINAL: No diarrhea, no nausea, no vomiting, no abdominal pain. Normoactive bowel sounds. NEUROLOGICAL: No headaches, no weakness, no numbness. HEMATOLOGICAL: Denies any bleeding or petechiae. GENITOURINARY: Denies any burning micturition, frequency, or urgency. MUSCULOSKELETAL/RHEUMATOLOGICAL: Denies any joint pain, swelling, or any muscle pain. ENDOCRINE: Denies any polyuria or polydipsia. Medication: Lipitor 80 mg, albuterol 2.5 mg, Norvasc 10 mg, aspirin 81 mg Symbicort 160-4.5 g, vitamin D3 1000 units, vitamin B12 2500 g, chest spots on a drop in both eyes, Pepcid 20 mg, heparin 5000 units, lisinopril 20 mg, Singulair 10 mg, nitroglycerin 0.4 mg, normal saline at 100 mL/h Objective - Vital Signs Vital signs: Vital Signs Temp 98.1 F 03/31/19 04:00 Pulse 81 03/31/19 04:00 Resp 16 03/31/19 04:00 BP 157/76 03/31/19 04:00 Pulse Ox 98 03/31/19 04:00 Intake & Output 03/30/19 03/31/19 03/31/19 18:59 06:59 18:59 Intake Total 240 100 Output Total 650 Balance 240 -550 Weight 68.7 kg Intake: Oral 240 100 Output: Urine 650 Straight 650 Other: Voiding Method Toilet Toilet Diaper Diaper Incontinent Incontinent - Exam GENERAL: The patient is alert and oriented x1, to person only, not in any acute distress. Well developed, well nourished. HEENT: Pupils are round and equally reacting to light. EOMI. No scleral icterus. No conjunctival pallor. Normocephalic, atraumatic. No pharyngeal erythema. No thyromegaly. CARDIOVASCULAR: S1 and S2 present. No murmurs, rubs, or gallops. PULMONARY: Chest is clear to auscultation, no wheezing or crackles. ABDOMEN: Soft, nontender, nondistended, normoactive bowel sounds. No palpable organomegaly. MUSCULOSKELETAL: No joint swelling or deformity. EXTREMITIES: No cyanosis, clubbing, or pedal edema. NEUROLOGICAL: Gross neurological examination did not reveal any focal deficits. SKIN: No rashes. - Labs CBC & Chem 7: 03/29/19 16:20 03/31/19 05:46 Labs: Abnormal Lab Results - Last 24 Hours (Table) 03/29/19 03/29/19 03/30/19 Range/Units 16:20 16:20 11:27 Chloride (98-107) mmol/L Carbon Dioxide (22-30) mmol/L BUN (7-17) mg/dL Creatinine (0.52-1.04) mg/dL Glucose (74-99) mg/dL POC Glucose (mg/dL) 148 H (75-99) mg/dL Hemoglobin A1c 6.2 H (4.0-6.0) % Vitamin B12 147.0 L (200.0-944.0) pg/mL 03/30/19 03/30/19 03/31/19 Range/Units 16:52 20:10 05:46 Chloride 111 H (98-107) mmol/L Carbon Dioxide 21 L (22-30) mmol/L BUN 19 H (7-17) mg/dL Creatinine 1.05 H (0.52-1.04) mg/dL Glucose 100 H (74-99) mg/dL POC Glucose (mg/dL) 151 H 189 H (75-99) mg/dL Hemoglobin A1c (4.0-6.0) % Vitamin B12 (200.0-944.0) pg/mL Assessment and Plan Assessment: Altered mental status, possible dementia Suspected fall secondary to above, versus syncope Vitamin B12 deficiency Possible Dehydration, patient improved after she was started on IV fluids History of COPD/asthma Type 2 diabetes mellitus Hypertension Hyperlipidemia Diabetic nephropathy History of glaucoma and macular degeneration of the eyes Plan: This is a pleasant 73 years old female who presents with altered mental status. Neurologist recommended check B12, Hb A1c, check carotid Doppler and monitor glucose. Continue with aspirin. Current it is recommended to check orthostasis and continue with a fluid. Check echocardiogram. Labs and medication were reviewed.. Continue same treatment. Continue with symptomatic treatment. Resume home medication. Monitor lytes and vitals. DVT and GI prophylaxis. Further recommendations of the clinical course of the patient DVT prophylaxis: Subcutaneous heparin GI Prophylaxis: Pepcid PT/OT: Pending Prognosis is guarded
[2019-03-31] MEDS: ASPIRIN 81 MG PO SCH (09:37)
[2019-03-31] MEDS: ATORVASTATIN 80 MG TAB PO SCH (09:37)
[2019-03-31] MEDS: amLODIPine 10 MG TAB PO SCH (09:37)
[2019-03-31] MEDS: LISINOPRIL 20 MG TAB PO SCH (09:38)
[2019-03-31] MEDS: MONTELUKAST 10 MG TAB PO SCH (09:38)
[2019-03-31] MEDS: HEPARIN SODIUM,PORCINE 5,000 UNIT/ML 1 ML VIAL SQ SCH ×2 (09:40→20:46)
[2019-03-31] MEDS: DORZOLAMIDE HCL 2% DROPS 10 ML BTL BOTH EYES SCH ×2 (09:42→20:46)
[2019-03-31] MEDS: FAMOTIDINE 20 MG/2 ML VIAL IV SCH (09:44)
[2019-03-31] MEDS: CHOLECALCIFEROL 1,000 UNIT TAB PO SCH (09:47)
[2019-03-31] MEDS: metFORMIN 500 MG TAB PO SCH ×2 (09:47→20:46)
[2019-03-31 09:48] LABS: Glucose,Whole Blood 102 mg/dL (75-99)
[2019-03-31 11:21] LABS: Glucose,Whole Blood 119 mg/dL (75-99)
--- NOTE | 2019-03-31 12:28 | P.PN ---
Subjective Progress Note Date: 03/31/19 Patient feels tired. Offers no new complaints. Objective - Vital Signs Vital signs: Vital Signs Temp 98.1 F 03/31/19 04:00 Pulse 78 03/31/19 09:29 Resp 18 03/31/19 09:17 BP 157/76 03/31/19 04:00 Pulse Ox 98 03/31/19 04:00 Intake & Output 03/30/19 03/31/19 03/31/19 18:59 06:59 18:59 Intake Total 240 100 Output Total 650 0 Balance 240 -550 0 Weight 68.7 kg Intake: Oral 240 100 Output: Urine 650 0 Straight 650 Other: Voiding Method Toilet Toilet Diaper Diaper Incontinent Incontinent # Voids 1 - Exam Patient's mental status, speech and language functions are normal. Patient is hard of hearing. Examination unchanged. - Labs CBC & Chem 7: 03/29/19 16:20 03/31/19 05:46 Labs: Abnormal Lab Results - Last 24 Hours (Table) 03/29/19 03/29/19 03/30/19 Range/Units 16:20 16:20 16:52 Chloride (98-107) mmol/L Carbon Dioxide (22-30) mmol/L BUN (7-17) mg/dL Creatinine (0.52-1.04) mg/dL Glucose (74-99) mg/dL POC Glucose (mg/dL) 151 H (75-99) mg/dL Hemoglobin A1c 6.2 H (4.0-6.0) % Vitamin B12 147.0 L (200.0-944.0) pg/mL 03/30/19 03/31/19 03/31/19 Range/Units 20:10 05:46 09:47 Chloride 111 H (98-107) mmol/L Carbon Dioxide 21 L (22-30) mmol/L BUN 19 H (7-17) mg/dL Creatinine 1.05 H (0.52-1.04) mg/dL Glucose 100 H (74-99) mg/dL POC Glucose (mg/dL) 189 H 102 H (75-99) mg/dL Hemoglobin A1c (4.0-6.0) % Vitamin B12 (200.0-944.0) pg/mL 03/31/19 Range/Units 11:20 Chloride (98-107) mmol/L Carbon Dioxide (22-30) mmol/L BUN (7-17) mg/dL Creatinine (0.52-1.04) mg/dL Glucose (74-99) mg/dL POC Glucose (mg/dL) 119 H (75-99) mg/dL Hemoglobin A1c (4.0-6.0) % Vitamin B12 (200.0-944.0) pg/mL Assessment and Plan Assessment: * Status post fall with some loss of memory, possible due to hypoglycemia. No evidence of TIA/CVA. * Diabetes, very well controlled. Last A1c 5.6 on 11/12/2017 * Bilateral carotid bruit. No evidence of significant carotid stenosis on carotid Doppler. * Gait dysfunction, rule out Vitamin B12 insufficiency. Her previous B12 was borderline 225 on 09/17/2015. Plan: * Patient has been given vitamin B12 injection 1000 g IM and will be started on B12 2500 g orally daily. * Hemoglobin A1c 6.1. * Watch for episodes of hypoglycemia. * Carotid Doppler showed moderate plaque bilaterally with no significant stenosis. Antegrade flow in both vertebral arteries. * Continue aspirin 81 mg and Lipitor. * Neurologically clear for discharge.
--- NOTE | 2019-03-31 15:47 | P.PN ---
Subjective Progress Note Date: 03/31/19 This is a pleasant 73-year-old female with history of hypertension, diabetes, hyperlipidemia, asthma, COPD, chronic anemia, who had a hospitalization a few years ago because of hyponatremia. She lives with her daughter. Patient apparently had fell or slipped out of her bed, she was found on the floor, family noted that her mental status was not as her usual. According to the daughter it reminded her of when her moms sodium was low in the past. For this reason they brought her to the emergency room for further evaluation and treatment. Patient denies having any dizziness or lightheaded ness, no chest discomfort, she is unsure exactly of what happened. A CAT scan of the brain was performed on arrival here which did not reveal any acute hemorrhage. Nonspecific white matter changes most typical of remote microvascular ischemia noted. Chest x-ray did not reveal any active cardiopul monary disease. X-ray of the pelvis did not reveal any acute abnormality. EKG on presentation here showed a normal sinus rhythm with a right bundle branch block pattern and nonspecific ST-T wave changes. I pressure on arrival here 115/77 with a heart rate in the 90s, 96% on room air. I pressure this morning 162/74 with a heart rate in the 80s, 96% on room air. Blood cell count is normal, hemoglobin 12.1, platelet count 332. Sodium 140, potassium 4.0, BUN 23 and creatinine 1.1. Troponins 0.047, 0.045, 0.034. Cholesterol 205, LDL 137, HDL 49 and triglycerides 94. At the time of my examination this morning, the patient is sitting up in her chair at bedside, daughter is present. She is alert and oriented 3, denies any dizziness or lightheadedness, no chest discomfort, no palpitations or shortness of breath. Cardiology consultation was requested because of abnormality in troponin. 03/31/2019 Patient seen and examined this morning, denies any dizziness or lightheadedness, overall feeling well. Blood pressure 150/70 with a heart rate of 80, 94% on room air. Objective - Vital Signs Vital signs: Vital Signs Temp 98.3 F 03/31/19 08:16 Pulse 78 03/31/19 12:51 Resp 18 03/31/19 12:42 BP 154/74 03/31/19 11:40 Pulse Ox 94 L 03/31/19 11:40 Intake & Output 03/30/19 03/31/19 03/31/19 18:59 06:59 18:59 Intake Total 240 100 20 Output Total 650 0 Balance 240 -550 20 Weight 68.7 kg Intake: Oral 240 100 20 Output: Urine 650 0 Straight 650 Other: Voiding Method Toilet Toilet Toilet Diaper Diaper Diaper Incontinent Incontinent Incontinent # Voids 1 - Exam PHYSICAL EXAMINATION: GENERAL: 73-year-old female in no acute distress at the time of my examination HEENT: Head is atraumatic, normocephalic. Pupils equal, round. Sclera anicteric. Conjunctiva are clear. Mucous membranes of the mouth are moist. Neck is supple. There is no elevated jugular venous pressure.No Carotid bruit is heard. HEART EXAMINATION: Heart S1 and S2 1 systolic murmur is heard CHEST EXAMINATION: Lungs are clear to auscultation and precussion. No chest wall tenderness is noted on palpation or with deep breathing. ABDOMEN: Soft, nontender. Bowel sounds are heard. No organomegaly noted. EXTREMITIES: 2+ peripheral pulses with no evidence of peripheral edema and no calf tenderness noted. NEUROLOGIC patient is awake, alert and oriented 3 . - Labs CBC & Chem 7: 03/29/19 16:20 03/31/19 05:46 Labs: Abnormal Lab Results - Last 24 Hours (Table) 03/29/19 03/29/19 03/30/19 Range/Units 16:20 16:20 16:52 Chloride (98-107) mmol/L Carbon Dioxide (22-30) mmol/L BUN (7-17) mg/dL Creatinine (0.52-1.04) mg/dL Glucose (74-99) mg/dL POC Glucose (mg/dL) 151 H (75-99) mg/dL Hemoglobin A1c 6.2 H (4.0-6.0) % Vitamin B12 147.0 L (200.0-944.0) pg/mL 03/30/19 03/31/19 03/31/19 Range/Units 20:10 05:46 09:47 Chloride 111 H (98-107) mmol/L Carbon Dioxide 21 L (22-30) mmol/L BUN 19 H (7-17) mg/dL Creatinine 1.05 H (0.52-1.04) mg/dL Glucose 100 H (74-99) mg/dL POC Glucose (mg/dL) 189 H 102 H (75-99) mg/dL Hemoglobin A1c (4.0-6.0) % Vitamin B12 (200.0-944.0) pg/mL 03/31/19 Range/Units 11:20 Chloride (98-107) mmol/L Carbon Dioxide (22-30) mmol/L BUN (7-17) mg/dL Creatinine (0.52-1.04) mg/dL Glucose (74-99) mg/dL POC Glucose (mg/dL) 119 H (75-99) mg/dL Hemoglobin A1c (4.0-6.0) % Vitamin B12 (200.0-944.0) pg/mL Assessment and Plan Plan: Assessment and plan #1 mental status changes with a questionable fall versus syncope. CAT scan of the brain did not reveal any acute finding #2 hypertension history #3 mildly abnormal troponin, not suggestive of acute coronary syndrome with a significant rise and fall pattern, patient denies having any chest discomfort. #4 diabetes #5 hyperlipidemia #6 mild dementia #7 mildly hydration #8 history of hyponatremia in the past Plan She had no significant documented orthostatics. From cardiology's perspective, she may be able to be discharged home today. We'll make a follow-up appointment in the office post DNP note has been reviewed, I agree with a documented findings and plan of care. Patient was seen and examined.
[2019-03-31] MEDS ORDERED: CYANOCOBALAMIN 1,000 MCG/ML 1 ML VIAL IM ONE (16:00)
[2019-03-31 16:29] LABS: Glucose,Whole Blood 174 mg/dL (75-99)
[2019-03-31 20:42] LABS: Glucose,Whole Blood 183 mg/dL (75-99)
[2019-04-01 05:10] VITALS: RESP 18
[2019-04-01 06:00] LABS: Glucose,Whole Blood 103 mg/dL (75-99)
[2019-04-01 06:35] LABS: Calcium 9.3 mg/dL (8.4-10.2); Potassium 4.1 mmol/L (3.5-5.1)
[2019-04-01] MEDS: SYMBICORT 160-4.5 MCG INHALER INHALATION SCH (08:10)
[2019-04-01] MEDS: ALBUTEROL NEBULIZED 2.5 MG/3 ML INHALATION SCH ×2 (08:10→11:36)
[2019-04-01] MEDS ORDERED: CYANOCOBALAMIN 500 MCG TAB PO SCH (09:00)
[2019-04-01] MEDS ORDERED: THIAMINE 100 MG TAB PO SCH (09:00)
[2019-04-01] MEDS ORDERED: FAMOTIDINE 20 MG TAB PO SCH (09:00)
--- NOTE | 2019-04-01 09:18 | ECHOF ---
Referral Reason:abn trop MEASUREMENTS -------- HEIGHT: 167.6 cm WEIGHT: 68.5 kg BP: 157/76 RVIDd: 2.3 cm (< 3.3) IVSd: 1.6 cm (0.6 - 1.1) LVIDd: 3.3 cm (3.9 - 5.3) LVPWd: 1.6 cm (0.6 - 1.1) IVSs: 2.0 cm LVIDs: 2.5 cm LVPWs: 1.6 cm Ao Diam: 3.2 cm (2.0 - 3.7) AV Cusp: 2.0 cm (1.5 - 2.6) LA Diam: 3.8 cm (2.7 - 3.8) MV EXCURSION: 13.275 mm (> 18.000) MV EF SLOPE: 70 mm/s (70 - 150) EPSS: 1.1 cm MV E Russell: 0.36 m/s MV DecT: 220 ms MV A Russell: 0.67 m/s MV E/A Ratio: 0.54 FINDINGS -------- Sinus rhythm. This was a technically difficult study with suboptimal views. The left ventricular size is normal. There is severe concentric left ventricular hypertrophy. Ove rall left ventricular systolic function is low-normal with, an EF between 50 - 55 %. The right ventricle is normal in size. The left atrial size is normal. The right atrium was not well visualized. Lumason used Interatrial and interventricular septum intact. Aortic valve is trileaflet and is mildly thickened. The mitral valve leaflets are mildly thickened. Mild mitral annular calcification present. Trace tricuspid regurgitation present. Right ventricular systolic pressure is normal at < 35 mmHg. The pulmonic valve is normal. The aortic root size is normal. IVC Not well visulized. Echo free space indicative of a pericardial fat pad. CONCLUSIONS -------- 1. Sinus rhythm. 2. This was a technically difficult study with suboptimal views. 3. The left ventricular size is normal. 4. There is severe concentric left ventricular hypertrophy. 5. Overall left ventricular systolic function is low-normal with, an EF between 50 - 55 %. 6. The right ventricle is normal in size. 7. The left atrial size is normal. 8. The right atrium was not well visualized. 9. Lumason used 10. Interatrial and interventricular septum intact. 11. Aortic valve is trileaflet and is mildly thickened. 12. The mitral valve leaflets are mildly thickened. 13. Mild mitral annular calcification present. 14. Trace tricuspid regurgitation present. 15. Right ventricular systolic pressure is normal at < 35 mmHg. 16. The pulmonic valve is normal. 17. The aortic root size is normal. 18. IVC Not well visulized. 19. Echo free space indicative of a pericardial fat pad. LATIN PROFESSOR: Maricruz Angela RDCS
[2019-04-01] MEDS: DORZOLAMIDE HCL 2% DROPS 10 ML BTL BOTH EYES SCH (09:19)
[2019-04-01] MEDS: LISINOPRIL 20 MG TAB PO SCH (09:20)
[2019-04-01] MEDS: ATORVASTATIN 80 MG TAB PO SCH (09:20)
[2019-04-01] MEDS: CHOLECALCIFEROL 1,000 UNIT TAB PO SCH (09:20)
[2019-04-01] MEDS: metFORMIN 500 MG TAB PO SCH (09:20)
[2019-04-01] MEDS: amLODIPine 10 MG TAB PO SCH (09:20)
[2019-04-01] MEDS: MONTELUKAST 10 MG TAB PO SCH (09:20)
[2019-04-01] MEDS: HEPARIN SODIUM,PORCINE 5,000 UNIT/ML 1 ML VIAL SQ SCH (09:20)
[2019-04-01] MEDS: ASPIRIN 81 MG PO SCH (09:21)
--- NOTE | 2019-04-01 10:07 | P.PN ---
Subjective Progress Note Date: 04/01/19 Patient feels less tired today. Offers no new complaints. Patient sitting in the recliner. Patient's B12 level has come very low 147 (200-944) Patient has received B12 injection. Objective - Vital Signs Vital signs: Vital Signs Temp 98.5 F 04/01/19 08:00 Pulse 84 04/01/19 08:00 Resp 18 04/01/19 08:00 BP 144/71 04/01/19 08:00 Pulse Ox 95 04/01/19 08:00 Intake & Output 03/31/19 04/01/19 04/01/19 18:59 06:59 18:59 Intake Total 140 240 Output Total 0 Balance 140 240 Weight 68.5 kg Intake: Oral 140 240 Output: Urine 0 Other: Voiding Method Toilet Toilet Diaper Diaper Incontinent Incontinent # Voids 4 1 1 # Bowel Movements 2 1 - Exam Patient's mental status, speech and language functions are normal. Patient is very hard of hearing. Examination unchanged. - Labs CBC & Chem 7: 03/29/19 16:20 04/01/19 05:52 Labs: Abnormal Lab Results - Last 24 Hours (Table) 03/31/19 03/31/19 03/31/19 Range/Units 11:20 16:27 20:29 Chloride (98-107) mmol/L Creatinine (0.52-1.04) mg/dL POC Glucose (mg/dL) 119 H 174 H 183 H (75-99) mg/dL 04/01/19 04/01/19 Range/Units 05:52 05:58 Chloride 110 H (98-107) mmol/L Creatinine 1.13 H (0.52-1.04) mg/dL POC Glucose (mg/dL) 103 H (75-99) mg/dL Assessment and Plan Assessment: * Status post fall with some loss of memory, possible due to hypoglycemia. No evidence of TIA/CVA. * B12 deficiency, levels very low 147 * Diabetes, very well controlled. Last A1c 5.6 on 11/12/2017 Plan: * Patient has been given vitamin B12 injection 1000 g IM and will be started on B12 2500 g orally daily. May benefit from monthly B12 injections also, as the levels was so low. May need periodic B12 levels checked. * Hemoglobin A1c 6.1. * Watch for episodes of hypoglycemia. * Carotid Doppler showed moderate plaque bilaterally with no significant stenosis. Antegrade flow in both vertebral arteries. * Continue aspirin 81 mg and Lipitor. * Neurologically clear for discharge.
[2019-04-01 11:48] LABS: Glucose,Whole Blood 115 mg/dL (75-99)
--- NOTE | 2019-04-01 12:12 | P.PN ---
Subjective Progress Note Date: 04/01/19 This is a pleasant 73-year-old female with history of hypertension, diabetes, hyperlipidemia, asthma, COPD, chronic anemia, who had a hospitalization a few years ago because of hyponatremia. She lives with her daughter. Patient apparently had fell or slipped out of her bed, she was found on the floor, family noted that her mental status was not as her usual. According to the daughter it reminded her of when her moms sodium was low in the past. For this reason they brought her to the emergency room for further evaluation and treatment. Patient denies having any dizziness or lightheaded ness, no chest discomfort, she is unsure exactly of what happened. A CAT scan of the brain was performed on arrival here which did not reveal any acute hemorrhage. Nonspecific white matter changes most typical of remote microvascular ischemia noted. Chest x-ray did not reveal any active cardiopul monary disease. X-ray of the pelvis did not reveal any acute abnormality. EKG on presentation here showed a normal sinus rhythm with a right bundle branch block pattern and nonspecific ST-T wave changes. I pressure on arrival here 115/77 with a heart rate in the 90s, 96% on room air. I pressure this morning 162/74 with a heart rate in the 80s, 96% on room air. Blood cell count is normal, hemoglobin 12.1, platelet count 332. Sodium 140, potassium 4.0, BUN 23 and creatinine 1.1. Troponins 0.047, 0.045, 0.034. Cholesterol 205, LDL 137, HDL 49 and triglycerides 94. At the time of my examination this morning, the patient is sitting up in her chair at bedside, daughter is present. She is alert and oriented 3, denies any dizziness or lightheadedness, no chest discomfort, no palpitations or shortness of breath. Cardiology consultation was requested because of abnormality in troponin. 03/31/2019 Patient seen and examined this morning, denies any dizziness or lightheadedness, overall feeling well. Blood pressure 150/70 with a heart rate of 80, 94% on room air. 04/01/2019 Patient seen and examined this morning, overall doing well. Hemodynamically stable. B/P 144/70. Objective - Vital Signs Vital signs: Vital Signs Temp 98.5 F 04/01/19 08:00 Pulse 88 05/24/19 11:47 Resp 18 04/01/19 08:00 BP 144/71 04/01/19 08:00 Pulse Ox 95 04/01/19 08:00 Intake & Output 03/31/19 04/01/19 04/01/19 18:59 06:59 18:59 Intake Total 140 240 Output Total 0 Balance 140 240 Weight 68.5 kg Intake: Oral 140 240 Output: Urine 0 Other: Voiding Method Toilet Toilet Toilet Diaper Diaper Diaper Incontinent Incontinent Incontinent # Voids 4 1 1 # Bowel Movements 2 1 - Exam PHYSICAL EXAMINATION: GENERAL: 73-year-old female in no acute distress at the time of my examination HEENT: Head is atraumatic, normocephalic. Pupils equal, round. Sclera anicteric. Conjunctiva are clear. Mucous membranes of the mouth are moist. Neck is supple. There is no elevated jugular venous pressure.No Carotid bruit is heard. HEART EXAMINATION: Heart S1 and S2 1 systolic murmur is heard CHEST EXAMINATION: Lungs are clear to auscultation and precussion. No chest wall tenderness is noted on palpation or with deep breathing. ABDOMEN: Soft, nontender. Bowel sounds are heard. No organomegaly noted. EXTREMITIES: 2+ peripheral pulses with no evidence of peripheral edema and no calf tenderness noted. NEUROLOGIC patient is awake, alert and oriented 3 . - Labs CBC & Chem 7: 03/29/19 16:20 04/01/19 05:52 Labs: Abnormal Lab Results - Last 24 Hours (Table) 03/31/19 03/31/19 04/01/19 Range/Units 16:27 20:29 05:52 Chloride 110 H (98-107) mmol/L Creatinine 1.13 H (0.52-1.04) mg/dL POC Glucose (mg/dL) 174 H 183 H (75-99) mg/dL 04/01/19 04/01/19 Range/Units 05:58 11:35 Chloride (98-107) mmol/L Creatinine (0.52-1.04) mg/dL POC Glucose (mg/dL) 103 H 115 H (75-99) mg/dL Assessment and Plan Plan: Assessment and plan #1 mental status changes with a questionable fall versus syncope. CAT scan of the brain did not reveal any acute finding #2 hypertension history #3 mildly abnormal troponin, not suggestive of acute coronary syndrome with a significant rise and fall pattern, patient denies having any chest discomfort. #4 diabetes #5 hyperlipidemia #6 mild dementia #7 mildly hydration #8 history of hyponatremia in the past Plan From cardiology's perspective, patient may be able to be discharged home today, we'll make a follow-up appointment in the office post discharge. DNP note has been reviewed, I agree with a documented findings and plan of care. Patient was seen and examined.
[2019-04-01 14:05] VITALS: TEMP 97.8
[2019-04-01 15:40] VITALS: BP 151/75; PULSE 97
[2019-04-01 16:35] LABS: Glucose,Whole Blood 158 mg/dL (75-99)
== END 2019-04-01 17:14 | disposition home health service (06) | DRG 639 ==
LOC: EC 14:32 → 3SCARD 17:40 → OBSVTOIN 03-31 09:45
PROVIDERS: ADMIT Hospitalist; ATTEND Hospitalist
DX: E11.649 Type 2 diabetes mellitus with hypoglycemia without coma (principal); E86.0 Dehydration; E11.22 Type 2 diabetes mellitus with diabetic chronic kidney disease; D64.9 Anemia, unspecified; F03.90 Unspecified dementia, unspecified severity, without behavioral disturbance, psychotic disturbance, mood disturbance, and anxiety; J44.9 Chronic obstructive pulmonary disease, unspecified; I45.10 Unspecified right bundle-branch block; I12.9 Hypertensive chronic kidney disease with stage 1 through stage 4 chronic kidney disease, or unspecified chronic kidney disease; N18.9 Chronic kidney disease, unspecified; E78.5 Hyperlipidemia, unspecified; H35.30 Unspecified macular degeneration; H40.9 Unspecified glaucoma; E53.8 Deficiency of other specified B group vitamins; R32 Unspecified urinary incontinence; R26.9 Unspecified abnormalities of gait and mobility; R77.8 Other specified abnormalities of plasma proteins; R09.89 Other specified symptoms and signs involving the circulatory and respiratory systems; H91.90 Unspecified hearing loss, unspecified ear; Z79.82 Long term (current) use of aspirin; Z79.51 Long term (current) use of inhaled steroids; Z79.84 Long term (current) use of oral hypoglycemic drugs; Z79.899 Other long term (current) drug therapy; W06.XXXA Fall from bed, initial encounter; Z82.49 Family history of ischemic heart disease and other diseases of the circulatory system; Z82.3 Family history of stroke
CPT/HCPCS: 36415; 70450; 71045; 72170; 80048; 80053; 80061; 80306; 81001; 82140; 82550; 82607; 83036; 83735; 84100; 84484; 85025; 85610; 85730; 93005; 93306; 93880; 94640; 94760; 96360; 96361; 99285

== ENCOUNTER 2019-04-07 06:33 | Inpatient (IN) | payer MEDICARE ==
[2019-04-07] MEDS ORDERED: SODIUM CHLORIDE 0.9% 1,000 ML IV STA (06:35)
--- NOTE | 2019-04-07 06:48 | ED ---
Neuro HPI - General Chief Complaint: Altered Mental Status Stated Complaint: non verbal Time Seen by Provider: 04/07/19 06:45 Source: family, EMS, RN notes reviewed, old records reviewed Mode of arrival: EMS Limitations: altered mental status - History of Present Illness Is the patient presenting with stroke symptoms?: Yes Last Known Well Date: 04/06/19 Last Known Well Time: 22:00 Initial Comments: This is a 73-year-old female the ER for evaluation. Patient coming to ER by lucas mccauley and EMS for unresponsiveness. Patient is found to be unresponsive and aphasic at home by daughter marla. Patient will 10 PM last night. Patient is he gets up verified at 6:00 take medications. Symptoms were noticed upon trying to wake patient this morning after work per the daughter. Patient is out of is again unable to give complaints secondary significant aphasia. Unable to follow commands. Location: speech, altered, other (Unable to follow commands) History of same: No Place: home Severity: severe Quality: improving (Patient was relatively physical unresponsive at home, patient is able to turn and not had an open mouth and multiple) Improves With: time Worsens With: none On Anticoagulants: No Associated Symptoms: confusion, weakness Treatments Prior to Arrival: none - Related Data Home Medications: Home Medications Medication Instructions Recorded Confirmed Dorzolamide 2% [Trusopt 2%] 1 drop BOTH EYES BID 06/30/16 04/07/19 Aspirin EC [Ecotrin Low Dose] 81 mg PO DAILY 10/03/17 04/07/19 Cholecalciferol [Vitamin D3 (25 1,000 unit PO DAILY 10/03/17 04/07/19 Mcg = 1000 Iu)] Fluticasone/Salmeterol [Advair 1 puff INHALATION RT-BID 10/03/17 04/07/19 500-50 Diskus] Vits A,C,E/Lutein/Minerals 1 tab PO DAILY 10/03/17 04/07/19 [Ocuvite with Lutein Tablet] Albuterol Nebulized [Ventolin 2.5 mg INHALATION RT-QID 03/29/19 04/07/19 Nebulized] Budesonide/Formoterol Fumarate 1 puff INHALATION RT-BID 03/29/19 04/07/19 [Symbicort 160-4.5 Mcg Inhaler] Montelukast [Singulair] 10 mg PO DAILY 03/29/19 04/07/19 metFORMIN HCL [Glucophage Xr] 750 mg PO BID 03/29/19 04/07/19 Previous Rx's Medication Instructions Recorded Lisinopril [Zestril] 20 mg PO DAILY #30 tab 10/05/17 amLODIPine [Norvasc] 10 mg PO DAILY #30 tab 10/05/17 Atorvastatin [Lipitor] 80 mg PO DAILY #30 tab 04/01/19 Cyanocobalamin [Vitamin B-12] 2,500 mcg PO DAILY #150 tab 04/01/19 Nitroglycerin Sl Tabs [Nitrostat] 0.4 mg SUBLINGUAL Q5M PRN #20 tab 04/01/19 Thiamine [Vitamin B-1] 100 mg PO DAILY #10 tab 04/01/19 Clopidogrel Bisulfate [Plavix] 75 mg PO DAILY #30 tab 04/09/19 Allergies/Adverse Reactions: Allergies Allergy/AdvReac Type Severity Reaction Status Date / Time No Known Allergies Allergy Verified 04/07/19 07:29 Review of Systems ROS Statement: Those systems with pertinent positive or pertinent negative responses have been documented in the HPI. ROS Other: All systems not noted in ROS Statement are negative. General Exam Limitations: altered mental status, physical limitation General appearance: alert, in no apparent distress Head exam: Present: atraumatic, normocephalic, normal inspection Eye exam: Present: normal appearance, PERRL, EOMI. Absent: scleral icterus, conjunctival injection, periorbital swelling ENT exam: Present: normal exam, mucous membranes moist Neck exam: Present: normal inspection. Absent: tenderness, meningismus, lym phadenopathy Respiratory exam: Present: normal lung sounds bilaterally. Absent: respiratory distress, wheezes, rales, rhonchi, stridor Cardiovascular Exam: Present: regular rate, normal rhythm, normal heart sounds. Absent: systolic murmur, diastolic murmur, rubs, gallop, clicks GI/Abdominal exam: Present: soft, normal bowel sounds. Absent: distended, tenderness, guarding, rebound, rigid Extremities exam: Present: normal inspection, full ROM, normal capillary refill. Absent: tenderness, pedal edema, joint swelling, calf tenderness Back exam: Present: normal inspection Neurological exam: Present: alert, oriented X3, CN II-XII intact Psychiatric exam: Present: normal affect, normal mood Skin exam: Present: warm, dry, intact, normal color. Absent: rash Stroke MDM - Lab Data Result diagrams: 04/08/19 06:27 04/08/19 06:27 Lab Results 04/07/19 04/07/19 04/07/19 Range/Units 06:36 06:42 06:42 WBC 7.4 (3.8-10.6) k/uL RBC 4.06 (3.80-5.40) m/uL Hgb 12.4 (11.4-16.0) gm/dL Hct 37.7 (34.0-46.0) % MCV 93.0 (80.0-100.0) fL MCH 30.5 (25.0-35.0) pg MCHC 32.8 (31.0-37.0) g/dL RDW 13.8 (11.5-15.5) % Plt Count 325 (150-450) k/uL Neutrophils % 49 % Lymphocytes % 34 % Monocytes % 9 % Eosinophils % 6 % Basophils % 1 % Neutrophils # 3.7 (1.3-7.7) k/uL Lymphocytes # 2.5 (1.0-4.8) k/uL Monocytes # 0.6 (0-1.0) k/uL Eosinophils # 0.4 (0-0.7) k/uL Basophils # 0.1 (0-0.2) k/uL PT (9.0-12.0) sec INR (<1.2) APTT (22.0-30.0) sec Sodium 140 (137-145) mmol/L Potassium 4.1 (3.5-5.1) mmol/L Chloride 108 H (98-107) mmol/L Carbon Dioxide 25 (22-30) mmol/L Anion Gap 7 mmol/L BUN 17 (7-17) mg/dL Creatinine 1.19 H (0.52-1.04) mg/dL Est GFR (CKD-EPI)AfAm 52 (>60 ml/min/1.73 sqM) Est GFR (CKD-EPI)NonAf 45 (>60 ml/min/1.73 sqM) Glucose 108 H (74-99) mg/dL POC Glucose (mg/dL) 130 H (75-99) mg/dL POC Glu [facility] Director ID Elle Patti Plasma Lactic Acid Galen (0.7-2.0) mmol/L Calcium 9.4 (8.4-10.2) mg/dL Phosphorus 4.1 (2.5-4.5) mg/dL Magnesium 1.7 (1.6-2.3) mg/dL Total Bilirubin 0.5 (0.2-1.3) mg/dL AST 26 (14-36) U/L ALT 34 (9-52) U/L Alkaline Phosphatase 74 (38-126) U/L Creatine Kinase 63 (30-135) U/L Troponin I (0.000-0.034) ng/mL Total Protein 6.6 (6.3-8.2) g/dL Albumin 3.9 (3.5-5.0) g/dL TSH 1.390 (0.465-4.680) mIU/L 04/07/19 04/07/19 04/07/19 Range/Units 06:42 06:42 06:42 WBC (3.8-10.6) k/uL RBC (3.80-5.40) m/uL Hgb (11.4-16.0) gm/dL Hct (34.0-46.0) % MCV (80.0-100.0) fL MCH (25.0-35.0) pg MCHC (31.0-37.0) g/dL RDW (11.5-15.5) % Plt Count (150-450) k/uL Neutrophils % % Lymphocytes % % Monocytes % % Eosinophils % % Basophils % % Neutrophils # (1.3-7.7) k/uL Lymphocytes # (1.0-4.8) k/uL Monocytes # (0-1.0) k/uL Eosinophils # (0-0.7) k/uL Basophils # (0-0.2) k/uL PT 9.8 (9.0-12.0) sec INR 0.9 (<1.2) APTT 21.3 L (22.0-30.0) sec Sodium (137-145) mmol/L Potassium (3.5-5.1) mmol/L Chloride (98-107) mmol/L Carbon Dioxide (22-30) mmol/L Anion Gap mmol/L BUN (7-17) mg/dL Creatinine (0.52-1.04) mg/dL Est GFR (CKD-EPI)AfAm (>60 ml/min/1.73 sqM) Est GFR (CKD-EPI)NonAf (>60 ml/min/1.73 sqM) Glucose (74-99) mg/dL POC Glucose (mg/dL) (75-99) mg/dL POC Glu [facility] Director ID Plasma Lactic Acid Galen 1.4 (0.7-2.0) mmol/L Calcium (8.4-10.2) mg/dL Phosphorus (2.5-4.5) mg/dL Magnesium (1.6-2.3) mg/dL Total Bilirubin (0.2-1.3) mg/dL AST (14-36) U/L ALT (9-52) U/L Alkaline Phosphatase (38-126) U/L Creatine Kinase (30-135) U/L Troponin I <0.012 (0.000-0.034) ng/mL Total Protein (6.3-8.2) g/dL Albumin (3.5-5.0) g/dL TSH (0.465-4.680) mIU/L - NIH Stroke Scale 1a. Level of Consciousness: (0) alert 1b. LOC Questions: (2) answers no questions correctly 1c. LOC Commands: (2) performs no tasks correctly 2. Best Gaze: (0) normal 3. Visual: (0) no visual loss 9. Best Language: (un) mute/global aphasia 10. Dysarthria: (0) normal 11. Extinction/Inattention: (0) no abnormality - Thrombolytic Inclusion/Exclusion Thrombolytic Exclusion Criteria: Symptom Onset > 3 Hours - Medical Decision Making 73 female the ER for evaluation. Patient has likely CVA with underlying de mentia, patient has dehydration will admit for rehydration and neurology evaluation - Radiology Data Radiology results: report reviewed (Chest x-ray CT brain CTA had not negative for acute disease), image reviewed Past Medical History Past Medical History: Asthma, COPD, Diabetes Mellitus, Hyperlipidemia, Hypertension Additional Past Medical History / Comment(s): Chronic renal failure, bronchial asthma, chronic anemia, macular degeneration, glaucoma , hypertension, hyperlipidemia History of Any Multi-Drug Resistant Organisms: None Reported Past Surgical History: No Surgical Hx Reported Past Anesthesia/Blood Transfusion Reactions: No Reported Reaction Past Psychological History: No Psychological Hx Reported Smoking Status: Never smoker Past Alcohol Use History: None Reported Past Drug Use History: None Reported - Past Family History Mother Family Medical History: CVA/TIA Father Family Medical History: Coronary Artery Disease (CAD) Course Vital Signs 04/07/19 04/07/19 04/07/19 06:36 07:15 07:30 Temperature 98.1 F Pulse Rate 93 85 81 Pulse Rate [ Women Specialist ] Respiratory 18 19 16 Rate Blood Pressure 183/97 169/85 171/88 Blood Pressure [Right Arm] O2 Sat by Pulse 97 99 99 Oximetry 04/07/19 04/07/19 04/07/19 07:45 08:00 08:15 Temperature Pulse Rate 78 76 77 Pulse Rate [ Women Specialist ] Respiratory 18 17 15 Rate Blood Pressure 155/77 145/78 145/76 Blood Pressure [Right Arm] O2 Sat by Pulse 99 98 100 Oximetry 04/07/19 04/07/19 04/07/19 08:30 08:45 09:00 Temperature Pulse Rate 68 64 Pulse Rate [ Women Specialist ] Respiratory 16 18 17 Rate Blood Pressure 154/88 143/75 148/74 Blood Pressure [Right Arm] O2 Sat by Pulse 99 100 100 Oximetry 04/07/19 04/07/19 04/07/19 09:15 09:30 10:00 Temperature Pulse Rate 63 64 72 Pulse Rate [ Women Specialist ] Respiratory 16 16 18 Rate Blood Pressure 148/76 148/79 168/85 Blood Pressure [Right Arm] O2 Sat by Pulse 100 100 99 Oximetry 04/07/19 04/07/19 04/07/19 10:30 11:00 12:26 Temperature Pulse Rate 76 78 Pulse Rate [ 73 Women Specialist ] Respiratory 19 17 20 Rate Blood Pressure 175/86 161/81 Blood Pressure 163/84 [Right Arm] O2 Sat by Pulse 100 100 Oximetry 04/07/19 04/07/19 04/07/19 15:04 19:15 20:16 Temperature 97.9 F 98.2 F Pulse Rate 79 Pulse Rate [ 64 84 Women Specialist ] Respiratory 20 18 Rate Blood Pressure Blood Pressure 141/70 166/81 [Right Arm] O2 Sat by Pulse 100 99 Oximetry 04/07/19 20:30 Temperature Pulse Rate 84 Pulse Rate [ Women Specialist ] Respiratory Rate Blood Pressure Blood Pressure [Right Arm] O2 Sat by Pulse Oximetry - Reevaluation(s) Reevaluation #1: Medical records reviewed No improvement in symptoms here in the ER Disposition Clinical Impression: Delirium due to general medical condition, Dementia, Altered mental state, Weakness, CVA (cerebral vascular accident) Disposition: ADMITTED IP TO THIS HOSP Condition: Fair Is patient prescribed a controlled substance at d/c from ED?: No
[2019-04-07 07:00] LABS: Basophils # (A) 0.1 k/uL (0-0.2); Basophils % (A) 1 %; Eosinophils # (A) 0.4 k/uL (0-0.7); Eosinophils % (A) 6 %; HCT 37.7 % (34.0-46.0); HGB 12.4 gm/dL (11.4-16.0); Lymphocytes # (A) 2.5 k/uL (1.0-4.8); Lymphocytes % (A) 34 %; MCH 30.5 pg (25.0-35.0); MCHC 32.8 g/dL (31.0-37.0); Mean Platelet Volume 6.8; Monocytes # (A) 0.6 k/uL (0-1.0); Monocytes % (A) 9 %; Neutrophils # (A) 3.7 k/uL (1.3-7.7); Neutrophils % (A) 49 %; Platelet Count 325 k/uL (150-450); RBC 4.06 m/uL (3.80-5.40); RDW 13.8 % (11.5-15.5); WBC 7.4 k/uL (3.8-10.6)
--- NOTE | 2019-04-07 07:10 | CT ---
EXAM: CT Head Without Intravenous Contrast CLINICAL HISTORY: 73-year-old female with weakness. TECHNIQUE: Axial computed tomography images of the head/brain without intravenous contrast. Coronal and sagittal reformatted images were created and reviewed. CTDI is 7.6 mGy and DLP is 1351.1 mGy-cm. This CT exam was performed using one or more of the following dose reduction techniques: automated exposure control, adjustment of the mA and/or kV according to patient size, and/or use of iterative reconstruction technique. COMPARISON: 03/29/2019. FINDINGS: Brain: Mild to moderate atrophy and probable chronic small vessel ischemia, as before. Ventricles: Unremarkable. Bones/joints: Probable old at least left nasal bone fracture, as before. Superficial soft tissues: Unremarkable. Sinuses: Unremarkable as visualized. Mastoid air cells: Unremarkable as visualized. IMPRESSION: No acute intracranial hemorrhage or evidence of acute large territory infarction; no significant interval change.
[2019-04-07] MEDS ORDERED: ASPIRIN 325 MG TAB PO STA (07:11)
[2019-04-07 07:14] LABS: Albumin 3.9 g/dL (3.5-5.0); Calcium 9.4 mg/dL (8.4-10.2); Magnesium 1.7 mg/dL (1.6-2.3); Phosphorus 4.1 mg/dL (2.5-4.5); Potassium 4.1 mmol/L (3.5-5.1); Total Bilirubin 0.5 mg/dL (0.2-1.3); Total Protein 6.6 g/dL (6.3-8.2)
[2019-04-07 07:19] LABS: INR 0.9 (<1.2); Prothrombin Time 9.8 sec (9.0-12.0)
[2019-04-07 07:22] LABS: Partial Thromboplastin Time 21.3 sec (22.0-30.0)
--- NOTE | 2019-04-07 07:31 | CT ---
EXAMINATION TYPE: CT angio head neck DATE OF EXAM: 04/07/2019 HISTORY: altered mental status, weakness, non verbal COMPARISON: None CT DLP: 340.5 mGycm. Automated Exposure Control for Dose Reduction was Utilized. TECHNIQUE: CTA scan of the neck is performed with IV Contrast, patient injected with 50 mL of Isovue 370, axial images are obtained, coronal and sagittal reformatted images are reviewed. Three-D recons tructed images are created on an independent workstation and reviewed. FINDINGS: Carotid/Vascular Structures: There is a three-vessel arch . Carotid bifurcations are somewhat low-lyi ng at the level of the hyoid. No significant flow-limiting stenosis is evident. [place]olai of [place]: Internal carotid arteries bifurcate normally into A1 and M1 segments. A2 segments a re normal. Small anterior communicating artery may be present. Posterior communicating arteries are n ot identified. Posterior cerebral vasculature in the vertebral basilar system appear normal. Other: Lung apices within the [id number] are clear. The thyroid is visualized is normal. IMPRESSION: 1. Atheromatous plaquing bilateral carotid bifurcations without significant flow-limiting stenosis. 2. [place]ol[place] of [place] appears within normal limits
[2019-04-07 07:39] LABS: Glucose,Whole Blood 130 mg/dL (75-99)
[2019-04-07] MEDS: SODIUM CHLORIDE 0.9% 1,000 ML IV SCH ×2 (07:54→21:16)
[2019-04-07 08:34] LABS: Appearance,Urine Clear (Clear); Bacteria,Urine Rare /hpf; Bilirubin,Urine Negative (Negative); Blood,Urine Negative (Negative); Color,Urine Colorless; Glucose,Urine (UA) Negative (Negative); Ketones,Urine Negative (Negative); Leukocyte Esterase,Urine Moderate (Negative); Nitrite,Urine Negative (Negative); PH, Urine 5.5 (5.0-8.0); Protein,Urine Negative (Negative); RBC,Urine <1 /hpf (0-5); Specific Gravity,Urine 1.008 (1.001-1.035); Squamous Epithelial Cell,Urine 1 /hpf (0-4); Urobilinogen,Urine <2.0 mg/dL (<2.0); WBC,Urine 25 /hpf (0-5)
--- NOTE | 2019-04-07 08:55 | XR ---
EXAMINATION TYPE: XR chest 2V DATE OF EXAM: 04/07/2019 COMPARISON: Prior chest x-ray 03/29/2019 HISTORY: Weakness TECHNIQUE: Frontal and lateral views of the chest are obtained. FINDINGS: The aorta is dense. There are overlying cardiac leads. Patient is rotated. There is no foca l air space opacity, pleural effusion, or pneumothorax seen. The cardiac silhouette size is within n ormal limits. The osseous structures are intact. IMPRESSION: No acute cardiopulmonary process.
--- NOTE | 2019-04-07 12:02 | P.CRDCN ---
History of Present Illness Consult date: 04/07/19 Requesting physician: Karolina Saul Consult reason: [email or web address] Chief complaint: unresponsiveness History of present illness: This is a pleasant 73-year-old female with history of hypertension, diabetes, hyperlipidemia, asthma, COPD, chronic anemia, who was recently in the hospital on March 29, admitted at that time with a questionable syncopal episode, where she woke up on her bedroom floor. Urology was consulted at that time too, did not appear that the patient had any neurologic event at that time. She comes back to the emergency room and now, after being found unresponsive by her daughter, they did try to wake the patient and had significant difficulty in waking her up. After moving the patient somewhat, they she did ultimately regain consciousness, her eyes were open, but she was not speaking. Patient was brought to the hospital for further evaluation and treatment. According to the daughter, she did have a follow-up appointment with Dr. Key in between her discharge and this readmission, she was doing quite well and was going to be scheduled for a stress test as an outpatient. Chest x-ray performed on admission did not reveal any acute cardiopulmonary process. Skin of the brain did not reveal any acute intracranial hemorrhage or evidence of large territory infarction. CT angiography showed atheromatous plaquing bilaterally carotids without significant flow-limiting stenosis. EKG on admission showed a normal sinus rhythm with left axis deviation. Similar to her recent EKG, no acute changes. Blood pressure on arrival here 182/90 with a heart rate in the 90s, 97% on room air. White blood cell count 7.4, hemoglobin 12.4, platelet count 325. Sodium 140, potassium 4.1, BUN 17 and creatinine 1.1. MAg 1.7, troponin 0.012, TSH 1.3. Upon examination in the emergency room, patient is quite sleepy, but she does awake. Past Medical History Past Medical History: Asthma, COPD, Diabetes Mellitus, Hyperlipidemia, H ypertension Additional Past Medical History / Comment(s): Chronic renal failure, bronchial asthma, chronic anemia, macular degeneration, glaucoma , hypertension, hyperlipidemia History of Any Multi-Drug Resistant Organisms: None Reported Past Surgical History: No Surgical Hx Reported Past Anesthesia/Blood Transfusion Reactions: No Reported Reaction Past Psychological History: No Psychological Hx Reported Smoking Status: Never smoker Past Alcohol Use History: None Reported Past Drug Use History: None Reported - Past Family History Mother Family Medical History: CVA/TIA Father Family Medical History: Coronary Artery Disease (CAD) Medications and Allergies Home Medications Medication Instructions Recorded Confirmed Type Dorzolamide 2% [Trusopt 2%] 1 drop BOTH EYES BID 06/30/16 04/07/19 History Aspirin EC [Ecotrin Low Dose] 81 mg PO DAILY 10/03/17 04/07/19 History Cholecalciferol [Vitamin D3 (25 1,000 unit PO DAILY 10/03/17 04/07/19 History Mcg = 1000 Iu)] Fluticasone/Salmeterol [Advair 1 puff INHALATION RT-BID 10/03/17 04/07/19 History 500-50 Diskus] Vits A,C,E/Lutein/Minerals 1 tab PO DAILY 10/03/17 04/07/19 History [Ocuvite with Lutein Tablet] Lisinopril [Zestril] 20 mg PO DAILY #30 tab 10/05/17 04/07/19 Rx amLODIPine [Norvasc] 10 mg PO DAILY #30 tab 10/05/17 04/07/19 Rx Albuterol Nebulized [Ventolin 2.5 mg INHALATION RT-QID 03/29/19 04/07/19 History Nebulized] Budesonide/Formoterol Fumarate 1 puff INHALATION RT-BID 03/29/19 04/07/19 History [Symbicort 160-4.5 Mcg Inhaler] Montelukast [Singulair] 10 mg PO DAILY 03/29/19 04/07/19 History metFORMIN HCL [Glucophage Xr] 750 mg PO BID 03/29/19 04/07/19 History Atorvastatin [Lipitor] 80 mg PO DAILY #30 tab 04/01/19 04/07/19 Rx Cyanocobalamin [Vitamin B-12] 2,500 mcg PO DAILY #150 tab 04/01/19 04/07/19 Rx Nitroglycerin Sl Tabs [Nitrostat] 0.4 mg SUBLINGUAL Q5M PRN #20 tab 04/01/19 04/07/19 Rx Thiamine [Vitamin B-1] 100 mg PO DAILY #10 tab 04/01/19 04/07/19 Rx Allergies Allergy/AdvReac Type Severity Reaction Status Date / Time No Known Allergies Allergy Verified 04/07/19 07:29 Physical Exam Vitals: Vital Signs Temp Pulse Resp BP Pulse Ox 04/07/19 11:00 78 17 161/81 04/07/19 10:30 76 19 175/86 100 04/07/19 10:00 72 18 168/85 99 04/07/19 09:30 64 16 148/79 100 04/07/19 09:15 63 16 148/76 100 04/07/19 09:00 64 17 148/74 100 04/07/19 08:45 68 18 143/75 100 04/07/19 08:30 16 154/88 99 04/07/19 08:15 77 15 145/76 100 04/07/19 08:00 76 17 145/78 98 04/07/19 07:45 78 18 155/77 99 04/07/19 07:30 81 16 171/88 99 04/07/19 07:15 85 19 169/85 99 04/07/19 06:36 98.1 F 93 18 183/97 97 Intake and Output 04/06/19 04/07/19 04/07/19 22:59 06:59 14:59 Other: Weight 69.853 kg HYSICAL EXAMINATION: GENERAL: 73-year-old female in no acute distress at the time of my examination HEENT: Head is atraumatic, normocephalic. Pupils equal, round. Sclera anicteric. Conjunctiva are clear. Mucous membranes of the mouth are moist. Neck is supple. There is no elevated jugular venous pressure.No Carotid bruit is heard. HEART EXAMINATION: Heart S1 and S2 1 systolic murmur is heard CHEST EXAMINATION: Lungs are clear to auscultation and precussion. No chest wall tenderness is noted on palpation or with deep breathing. ABDOMEN: Soft, nontender. Bowel sounds are heard. No organomegaly noted. EXTREMITIES: 2+ peripheral pulses with no evidence of peripheral edema and no calf tenderness noted. NEUROLOGIC patient is awake, alert and oriented 3 . Results 04/07/19 06:42 04/07/19 06:42 Cardiac Enzymes 04/07/19 04/07/19 Range/Units 06:42 06:42 AST 26 (14-36) U/L Troponin I <0.012 (0.000-0.034) ng/mL Coagulation 04/07/19 Range/Units 06:42 PT 9.8 (9.0-12.0) sec APTT 21.3 L (22.0-30.0) sec CBC 04/07/19 Range/Units 06:42 WBC 7.4 (3.8-10.6) k/uL RBC 4.06 (3.80-5.40) m/uL Hgb 12.4 (11.4-16.0) gm/dL Hct 37.7 (34.0-46.0) % Plt Count 325 (150-450) k/uL Comprehensive Metabolic Panel 04/07/19 Range/Units 06:42 Sodium 140 (137-145) mmol/L Potassium 4.1 (3.5-5.1) mmol/L Chloride 108 H (98-107) mmol/L Carbon Dioxide 25 (22-30) mmol/L BUN 17 (7-17) mg/dL Creatinine 1.19 H (0.52-1.04) mg/dL Glucose 108 H (74-99) mg/dL Calcium 9.4 (8.4-10.2) mg/dL AST 26 (14-36) U/L ALT 34 (9-52) U/L Alkaline Phosphatase 74 (38-126) U/L Total Protein 6.6 (6.3-8.2) g/dL Albumin 3.9 (3.5-5.0) g/dL Current Medications Generic Name Dose Route Start Last Admin Trade Name Freq PRN Reason Stop Dose Admin Aspirin 325 mg 04/08/19 09:00 Aspirin PO DAILY MARILIN Sodium Chloride 1,000 mls @ 100 mls/hr 04/07/19 07:15 04/07/19 07:54 Saline 0.9% IV 100 mls/hr .Q10H MARILIN Administration Intake and Output 04/06/19 04/07/19 04/07/19 22:59 06:59 14:59 Other: Weight 69.853 kg 04/07/19 06:42 04/07/19 06:42 EKG Interpretations (text) EKG shows normal sinus rhythm with left axis deviation. Assessment and Plan Plan: Assessment and plan #1 unresponsive episode, rule out possible TIA or seizures. Neurology is following, MRI of the brain is ordered as well as EEG. #2 recent admission to the hospital following a syncopal episode. Echocardiogram with Doppler study was performed which revealed a normal left ventricular systolic function. No valvular abnormalities were noted. #3 hypertension #4 diabetes #5 hyperlipidemia #6 mild dementia Plan From cardiology's perspective, we'll recommend to continue the patient on her current medications. Await full neurology workup. Further recommendations to follow. DNP note has been reviewed, I agree with a documented findings and plan of care. Patient was seen and examined.
--- NOTE | 2019-04-07 12:11 | P.CNNES ---
History of Present Illness Consult date: 04/07/19 Reason for Consult: CVA History of Present Illness: Patient is a 73-year-old female, who was recently seen in hospital consultation on 03/29/2019 for episode of an episode of unresponsiveness, was felt to be related to possible hypoglycemia, although blood glucose was not checked at that time. Patient had a normal carotid Doppler, and was found to have B12 deficiency, and was sent home on B12 injections. Patient now came to the hospital with another episode of unresponsiveness. Patient's daughters were present who provided the history. Patient went to bed in usual state of health at 9:30 PM last night. At 5:50 AM, patient's daughter tried to wake her up, and patient would not week. They tried really hard, but patient would not respond. EMS was called and they arrived at the house at 6:10 AM.. On their arrival it was documented patient was supine in bed in no obvious distress. Patient would not make eye contact. She was alert 0, responding to painful stimuli, with no verbal expression noted. Her blood pressure was 166/87 pulse rate 79 respiration 14 saturation 88% and her blood glucose was 128. EKG showed sinus rhythm. Patient was administered 12 later per minute of oxygen via nonrebreather. While being transferred, patient mentation improved, and she was having inability to acknowledge verbal communication by making eye contact but not able to speak. CT head showed no acute process. CTA of head and neck s howed atheromatous plaquing bilateral carotid bifurcations without significant stenosis. Normal [place] of Pal. EKG showed normal sinus rhythm with left atrial enlargement. Chest x-ray showed no acute process. Patient's blood tests showed normal CBC, PT/PTT. Chem-7 with sodium 140 potassium 4.1. UA showed moderate leukocyte esterase and 25 WBCs and rare bacteria. Patient had a 2-D echo performed on last admission, which revealed severe concentric LVH, EF 50-55%. Left atrial size is normal. Aortic valve is trileaflet. No embolic source. Review of Systems Patient denies any chest pain, shortness of breath, wheezing. Denies any headache. Patient does have significant visual disturbance related to her previous macular degeneration and laser eye surgeries. Denies any numbness tingling focal weakness. Patient does snore lightly, but does not have any periodic limb movements while sleeping or any obvious episodes of apnea. Past Medical History Past Medical History: Asthma, COPD, Diabetes Mellitus, Hyperlipidemia, Hypertension Additional Past Medical History / Comment(s): Chronic renal failure, bronchial asthma, chronic anemia, macular degeneration, glaucoma , hypertension, hype rlipidemia History of Any Multi-Drug Resistant Organisms: None Reported Past Surgical History: No Surgical Hx Reported Past Anesthesia/Blood Transfusion Reactions: No Reported Reaction Past Psychological History: No Psychological Hx Reported Smoking Status: Never smoker Past Alcohol Use History: None Reported Past Drug Use History: None Reported - Past Family History Mother Family Medical History: CVA/TIA Father Family Medical History: Coronary Artery Disease (CAD) Medications and Allergies Home Medications Medication Instructions Recorded Confirmed Type Dorzolamide 2% [Trusopt 2%] 1 drop BOTH EYES BID 06/30/16 04/07/19 History Aspirin EC [Ecotrin Low Dose] 81 mg PO DAILY 10/03/17 04/07/19 History Cholecalciferol [Vitamin D3 (25 1,000 unit PO DAILY 10/03/17 04/07/19 History Mcg = 1000 Iu)] Fluticasone/Salmeterol [Advair 1 puff INHALATION RT-BID 10/03/17 04/07/19 H istory 500-50 Diskus] Vits A,C,E/Lutein/Minerals 1 tab PO DAILY 10/03/17 04/07/19 History [Ocuvite with Lutein Tablet] Lisinopril [Zestril] 20 mg PO DAILY #30 tab 10/05/17 04/07/19 Rx amLODIPine [Norvasc] 10 mg PO DAILY #30 tab 10/05/17 04/07/19 Rx Albuterol Nebulized [Ventolin 2.5 mg INHALATION RT-QID 03/29/19 04/07/19 History Nebulized] Budesonide/Formoterol Fumarate 1 puff INHALATION RT-BID 03/29/19 04/07/19 History [Symbicort 160-4.5 Mcg Inhaler] Montelukast [Singulair] 10 mg PO DAILY 03/29/19 04/07/19 History metFORMIN HCL [Glucophage Xr] 750 mg PO BID 03/29/19 04/07/19 History Atorvastatin [Lipitor] 80 mg PO DAILY #30 tab 04/01/19 04/07/19 Rx Cyanocobalamin [Vitamin B-12] 2,500 mcg PO DAILY #150 tab 04/01/19 04/07/19 Rx Nitroglycerin Sl Tabs [Nitrostat] 0.4 mg SUBLINGUAL Q5M PRN #20 tab 04/01/19 04/07/19 Rx Thiamine [Vitamin B-1] 100 mg PO DAILY #10 tab 04/01/19 04/07/19 Rx Allergies Allergy/AdvReac Type Severity Reaction Status Date / Time No Known Allergies Allergy Verified 04/07/19 07:29 Physical Examination - Vital Signs Vital Signs: Vital Signs Temp Pulse Resp BP Pulse Ox 04/07/19 11:00 78 17 161/81 04/07/19 10:30 76 19 175/86 100 04/07/19 10:00 72 18 168/85 99 04/07/19 09:30 64 16 148/79 100 04/07/19 09:15 63 16 148/76 100 04/07/19 09:00 64 17 148/74 100 04/07/19 08:45 68 18 143/75 100 04/07/19 08:30 16 154/88 99 04/07/19 08:15 77 15 145/76 100 04/07/19 08:00 76 17 145/78 98 04/07/19 07:45 78 18 155/77 99 04/07/19 07:30 81 16 171/88 99 04/07/19 07:15 85 19 169/85 99 04/07/19 06:36 98.1 F 93 18 183/97 97 Intake and Output 04/06/19 04/07/19 04/07/19 22:59 06:59 14:59 Other: Weight 69.853 kg On examination patient is an elderly female, in no acute distress. Patient has mild carotid bruit. She is a very flat affect. She appears slightl y depressed. Patient keeps her eyes closed, but did open her eyes and answered appropriately. She can name and repeat without problem with no paraphasic errors. No aphasia or dysarthria. On cranial nerve examination pupils are round and reactive to light. Visual bertrand reveal some restriction related to her previous eye surgeries. Extraocular muscles are intact. Face is symmetric and tongue protrudes to the midline. On muscle strength testing there is no pronator drift and the strength is normal in the arms and legs except right pearl peller which is 5-as compared to the left. Biceps triceps deltoids are normal bilaterally. Hip flexion is 4+ bilaterally. Ankles and toes are normal. Refle xes are diminished and plantars downgoing. Sensory touch is equal. No ataxia for [id number] testing. Tone and bulk of muscles normal Results - Laboratory Findings CBC and BMP: 04/07/19 06:42 04/07/19 06:42 Abnormal Lab Findings: Abnormal Labs 04/07/19 04/07/19 04/07/19 06:36 06:42 06:42 APTT 21.3 L Chloride 108 H Creatinine 1.19 H Glucose 108 H POC Glucose (mg/dL) 130 H Ur Leukocyte Esterase Urine WBC Urine Bacteria 04/07/19 08:18 APTT Chloride Creatinine Glucose POC Glucose (mg/dL) Ur Leukocyte Esterase Moderate H Urine WBC 25 H Urine Bacteria Rare H Assessment and Plan Assessment: * Recurrent episodes of unresponsiveness of unclear etiology. Rule out TIA versus focal seizures. As both of these events occurred while she was asleep, therefore need to rule out sleep paralysis, obstructive sleep apnea or other parasomnias. * Diabetes, well-controlled, last A1c 6.2 on 03/29/2019 * Hyperlipidemia * B12 deficiency Plan: * We will check MRI of the brain to verify CVA, rule out mass. * EEG to rule out any epileptiform activity. * Fasting a.m. lipid panel * Continue aspirin for now. * If above workup comes back negative, then would consider polysomnogram to rule out ESTER, sleep paralysis, or other parasomnias.
[2019-04-07] MEDS ORDERED: NITROGLYCERIN SL TABS 0.4 MG TAB SUBLINGUAL PRN (12:23)
--- NOTE | 2019-04-07 15:29 | EEG ---
ELECTROENCEPHALOGRAM REPORT DATE OF SERVICE: 04/07/2019 PREAMBLE: This is a 73-year-old female who went to sleep last night, and was unable to be aroused this morning at 5:50 am. The patient did not wake up until she was in the ER. This study is performed to look for any epileptiform activity. EEG FINDINGS: A routine 21 channel portable digital EEG recording was accomplished utilizing the 10/20 international system with bipolar and referential montages. The study is somewhat limited because of frequent movement/myogenic activity seen during most of the study. Overall, the background consists of well regulated and modulated, moderate amplitude activity in the 6-7 hertz theta, which is posterior dominant and appears to be slightly reactive to eye opening and closing. Intermittent bursts of higher amplitude, generalized 1-2 hertz delta activity were seen. Some intermittent left hemispheric focal slowing and some sharp appearing waves were also seen. Different stages of sleep were not seen. The EKG rhythm leads revealed no obvious arrhythmia. IMPRESSION: This is an abnormal EEG due to: 1. The background slowing, suggestive of generalized cerebral dysfunction, as can be seen in toxic metabolic encephalopathies or related to diffuse structural brain abnormality. 2. Intermittent left hemispheric slowing with some sharp waves. This is suggestive of focal cortical neural dysfunction and may suggest underlying cortical irritability and tendency for seizure. 3. This study was technically limited due to significant myogenic activity. Recommend a sleep deprived or a prolonged EEG for better understanding of underlying cerebral electrical activity. Clinical correlation is strongly recommended. MMGINAL / IJN: [id number] /
--- NOTE | 2019-04-07 15:58 | P.HPIM ---
History of Present Illness 72-year-old pleasant female was brought in because of an episode of unresponsiveness patient looks bit older than her age. [place] frequent visits from family members patient was recently treated for syncopal episode had an echocardiogram at that time which did not show any significant abnormality patient was brought in by daughter as patient was unresponsive and the after she woke up patient was bit confused initially they were planning underway and doing the CPR. Confusion lasted for about an hour. Never had any history of seizures. Patient is being admitted for evaluation for cerebral vascular accident cardiology valid the patient as well no further recommendations for them regarding the neurology there are no other focal neurological deficits patient doesn't have any loss of bowel or bladder continence no tongue biting. Patient had a CAT scan which did not show any significant abnormality CT angios the head and neck showed some atheromatous plaquing of the bilateral carotid bifurcation without any significant stenosis no other signs or symptoms of sepsis MRI is being obtain EEG is being updated at this time. The only significant abnormality awake and appreciate and had labs is mildly elevated serum creatinine blood pressure is not low patient although will be resumed only on an VALENCIA inhibitor hold off on amlodipine until I have but knowledge of for blood pressure trend. UA is bit abnormal but not convincing for urinary tract infection. Patient doesn't have any symptoms of UTI and patient mental status presently is at her baseline Review of Systems REVIEW OF SYSTEMS: CONSTITUTIONAL: No fever, no malaise, no fatigue. HEENT: No recent visual problems or hearing problems. Denied any sore throat. CARDIOVASCULAR: No chest pain, orthopnea, PND, no palpitations, no syncope. PULMONARY: No shortness of breath, no cough, no hemoptysis. GASTROINTESTINAL: No diarrhea, no nausea, no vomiting, no abdominal pain. NEUROLOGICAL: No headaches, no weakness, no numbness. HEMATOLOGICAL: Denies any bleeding or petechiae. GENITOURINARY: Denies any burning micturition, frequency, or urgency. MUSCULOSKELETAL/RHEUMATOLOGICAL: Denies any joint pain, swelling, or any muscle pain. ENDOCRINE: Denies any polyuria or polydipsia. The rest of the 14-point review of systems is negative. Past Medical History Past Medical History: Asthma, COPD, Diabetes Mellitus, Hyperlipidemia, Hypertension Additional Past Medical History / Comment(s): bronchial asthma, macular dege neration, glaucoma , hypertension, hyperlipidemia History of Any Multi-Drug Resistant Organisms: None Reported Past Surgical History: No Surgical Hx Reported Past Anesthesia/Blood Transfusion Reactions: No Reported Reaction Smoking Status: Never smoker - Past Family History Mother Family Medical History: CVA/TIA Father Family Medical History: Coronary Artery Disease (CAD) Medications and Allergies Home Medications Medication Instructions Recorded Confirmed Type Dorzolamide 2% [Trusopt 2%] 1 drop BOTH EYES BID 06/30/16 04/07/19 History Aspirin EC [Ecotrin Low Dose] 81 mg PO DAILY 10/03/17 04/07/19 History Cholecalciferol [Vitamin D3 (25 1,000 unit PO DAILY 10/03/17 04/07/19 History Mcg = 1000 Iu)] Fluticasone/Salmeterol [Advair 1 puff INHALATION RT-BID 10/03/17 04/07/19 History 500-50 Diskus] Vits A,C,E/Lutein/Minerals 1 tab PO DAILY 10/03/17 04/07/19 History [Ocuvite with Lutein Tablet] Lisinopril [Zestril] 20 mg PO DAILY #30 tab 10/05/17 04/07/19 Rx amLODIPine [Norvasc] 10 mg PO DAILY #30 tab 10/05/17 04/07/19 Rx Albuterol Nebulized [Ventolin 2.5 mg INHALATION RT-QID 03/29/19 04/07/19 History Nebulized] Budesonide/Formoterol Fumarate 1 puff INHALATION RT-BID 03/29/19 04/07/19 History [Symbicort 160-4.5 Mcg Inhaler] Montelukast [Singulair] 10 mg PO DAILY 03/29/19 04/07/19 History metFORMIN HCL [Glucophage Xr] 750 mg PO BID 03/29/19 04/07/19 History Atorvastatin [Lipitor] 80 mg PO DAILY #30 tab 04/01/19 04/07/19 Rx Cyanocobalamin [Vitamin B-12] 2,500 mcg PO DAILY #150 tab 04/01/19 04/07/19 Rx Nitroglycerin Sl Tabs [Nitrostat] 0.4 mg SUBLINGUAL Q5M PRN #20 tab 04/01/19 04/07/19 Rx Thiamine [Vitamin B-1] 100 mg PO DAILY #10 tab 04/01/19 04/07/19 Rx Allergies Allergy/AdvReac Type Severity Reaction Status Date / Time No Known Allergies Allergy Verified 04/07/19 07:29 Physical Exam Vitals: Vital Signs Temp Pulse Pulse Resp BP BP Pulse Ox 04/07/19 15:04 97.9 F 64 20 141/70 100 04/07/19 12:26 73 20 163/84 100 04/07/19 11:00 78 17 161/81 04/07/19 10:30 76 19 175/86 100 04/07/19 10:00 72 18 168/85 99 04/07/19 09:30 64 16 148/79 100 04/07/19 09:15 63 16 148/76 100 04/07/19 09:00 64 17 148/74 100 04/07/19 08:45 68 18 143/75 100 04/07/19 08:30 16 154/88 99 04/07/19 08:15 77 15 145/76 100 04/07/19 08:00 76 17 145/78 98 04/07/19 07:45 78 18 155/77 99 04/07/19 07:30 81 16 171/88 99 04/07/19 07:15 85 19 169/85 99 04/07/19 06:36 98.1 F 93 18 183/97 97 Intake and Output 04/07/19 04/07/19 04/07/19 06:59 14:59 22:59 Intake Total 400 Balance 400 Intake: Intake, IV Titration 400 Amount Sodium Chloride 0.9% 1, 400 000 ml @ 100 mls/hr IV . Q10H [facility] Rx#:[id number] Other: Weight 69.853 kg PHYSICAL EXAMINATION: GENERAL: The patient is alert and oriented x3, not in any acute distress. Well developed, well nourished. HEENT: Pupils are round and equally reacting to light. EOMI. No scleral icterus. No conjunctival pallor. Normocephalic, atraumatic. No pharyngeal erythema. No thyromegaly. CARDIOVASCULAR: S1 and S2 present. No murmurs, rubs, or gallops. PULMONARY: Chest is clear to auscultation, no wheezing or crackles. ABDOMEN: Soft, nontender, nondistended, normoactive bowel sounds. No palpable organomegaly. MUSCULOSKELETAL: No joint swelling or deformity. EXTREMITIES: No cyanosis, clubbing, or pedal edema. NEUROLOGICAL: Gross neurological examination did not reveal any focal deficits. She appears bit lethargic SKIN: No rashes. Results CBC & Chem 7: 04/07/19 06:42 04/07/19 06:42 Labs: Abnormal Lab Results - Last 24 Hours (Table) 04/07/19 04/07/19 04/07/19 Range/Units 06:36 06:42 06:42 APTT 21.3 L (22.0-30.0) sec Chloride 108 H (98-107) mmol/L Creatinine 1.19 H (0.52-1.04) mg/dL Glucose 108 H (74-99) mg/dL POC Glucose (mg/dL) 130 H (75-99) mg/dL Ur Leukocyte Esterase (Negative) Urine WBC (0-5) /hpf Urine Bacteria (None) /hpf 04/07/19 Range/Units 08:18 APTT (22.0-30.0) sec Chloride (98-107) mmol/L Creatinine (0.52-1.04) mg/dL Glucose (74-99) mg/dL POC Glucose (mg/dL) (75-99) mg/dL Ur Leukocyte Esterase Moderate H (Negative) Urine WBC 25 H (0-5) /hpf Urine Bacteria Rare H (None) /hpf Microbiology - Last 24 Hours (Table) 04/07/19 08:18 Urine Culture - Preliminary Urine,Voided Thrombosis Risk Factor Assmnt - Choose All That Apply Each Risk Factor Represents 2 Points: Age 61-74 years Thrombosis Risk Factor Assessment Total Risk Factor Score: 2 Thrombosis Risk Factor Assessment Level: Low Risk Assessment and Plan Plan: -Episode of unresponsiveness: Patient is being evaluated for TIA or seizure. We'll obtain an MRI and an EEG. Neurology evaluated the patient LDL is being obtain for tomorrow episode is not convincing for syncope although patient was evaluated for syncope cardiology evaluated the patient as well -Mild acute renal failure-patient was started on IV fluids which will be continued and will recheck the creatinine tomorrow. -COPD without any acute exacerbation Hyperlipidemia -Hypertension For above-mentioned chronic medical problems patient will be resumed on appropriate home medications. Patient may need the DVT prophylaxis pharmacologic.
[2019-04-07] MEDS: HEPARIN SODIUM,PORCINE 5,000 UNIT/ML 1 ML VIAL SQ SCH ×2 (16:33→23:37)
[2019-04-07 17:17] LABS: Glucose,Whole Blood 87 mg/dL (75-99)
--- NOTE | 2019-04-07 17:39 | P.CNPUL ---
History of Present Illness Consult date: 04/07/19 Requesting physician: Karolina Saul Reason for consult: other Chief complaint: Acute mental status change History of present illness: This is 73-year-old white female patient with history of mild intermittent bronchial asthma, diabetes mellitus, hypertension, hyperlipidemia, chronic kidney disease, chronic anemia, never smoker, who was brought into the hospital on 04/07/2019 for evaluation of decreased level of consciousness, patient was found unresponsive this morning at around 6 AM by her daughter, who came in to give her her morning medications and could not wake her up. After vigorous stimulation, 911 was called, and it was advised to place the patient on the floor and started CPR, however soon as the patient was placed on the floor she came to. She seems to be weak and confused, speech was slow, was unable to follow commands. She was last seen well last night at around 9 PM, in her usual state of health, awake and alert, with no neurologic deficits, with no speech deficits, and patient was not complaining of any shortness of breath, or any other specific complaints. She was recently hospitalized last week for altered mentation, and patient fell out of bed in the morning, and apparently patient had loss of bowel control at the time, blood sugar was not checked, patient has no prior history of seizures. Neurologic workup was negative for any evidence of CVA/TIA, carotid Dopplers showed moderate plaque bilaterally with no hemodynamically significant stenosis. Echocardiogram showed normal left ventricle systolic function with an EF of 50-55%. There was severe concentric left ventricular hypertrophy, trace tricuspid regurg, mild mitral annular calcification, mildly thickened aortic valve which was trileaflet. CT brain showed no acute hemorrhage, did show degenerative and nonspecific white matter changes most typical of remote microvascular ischemia. Patient's asthma has been stable. Patient was discharged home, and her episode of altered mentation and falling out of bed was suspected to be due to hypoglycemic episodes. She also had a mildly abnormal troponin that was not suggestive of acute coronary syndrome. Blood sugar on arrival to the hospital was 105, CT brain showed mild to moderate atrophy and probable chronic small vessel ischemia, but no acute intracranial abnormality. EKG showed normal sinus rhythm with evidence of septal infarct of undetermined age, no acute changes, CT angiography showed atheromatous plaquing bilaterally in the carotids without significant flow limiting stenosis. Chest x-ray did not reveal any acute cardiopulmonary process. Blood pressure was 183/97, room air pulse ox was 97%, heart rate was 97, normal sinus rhythm, and a temp was 98.1F. Blood work showed a white blood cell, 7.4, hemoglobin of 12.4, INR 0.9, sodium is 140, potassium is 4.1, chloride was 108, BUN was 17 and creatinine is 1.19, troponin was negative 1, SH was within normal limits, at 1.390, urinalysis showed moderate leuks, and 25 of WBC. Patient is arousable, she is answering questions, speech is slow, but no aphasia, no lateralizing deficits. She has been evaluated by neurology for recurrent episodes of unresponsiveness of unclear etiology, and EEG is pending, as well as the MRI to rule out possibility of CVA Review of Systems All systems: negative Constitutional: Denies chills, Denies fever Eyes: denies blurred vision, denies pain Ears, nose, mouth and throat: Denies headache, Denies sore throat Cardiovascular: Denies chest pain, Denies shortness of breath Respiratory: Denies cough Gastrointestinal: Denies abdominal pain, Denies diarrhea, Denies nausea, Denies vomiting Genitourinary: Denies dysuria, Denies hematuria Musculoskeletal: Denies myalgias Integumentary: Denies pruritus, Denies rash Neurological: Reports syncope, Denies numbness, Denies weakness Psychiatric: Denies anxiety, Denies depression Endocrine: Denies fatigue, Denies weight change Past Medical History Past Medical History: Asthma, COPD, Diabetes Mellitus, Hyperlipidemia, Hypertension Additional Past Medical History / Comment(s): bronchial asthma, macular degeneration, glaucoma , hypertension, hyperlipidemia History of Any Multi-Drug Resistant Organisms: None Reported Past Surgical History: No Surgical Hx Reported Past Anesthesia/Blood Transfusion Reactions: No Reported Reaction Smoking Status: Never smoker - Past Family History Mother Family Medical History: CVA/TIA Father Family Medical History: Coronary Artery Disease (CAD) Medications and Allergies Home Medications Medication Instructions Recorded Confirmed Type Dorzolamide 2% [Trusopt 2%] 1 drop BOTH EYES BID 06/30/16 04/07/19 History Aspirin EC [Ecotrin Low Dose] 81 mg PO DAILY 10/03/17 04/07/19 History Cholecalciferol [Vitamin D3 (25 1,000 unit PO DAILY 10/03/17 04/07/19 History Mcg = 1000 Iu)] Fluticasone/Salmeterol [Advair 1 puff INHALATION RT-BID 10/03/17 04/07/19 History 500-50 Diskus] Vits A,C,E/Lutein/Minerals 1 tab PO DAILY 10/03/17 04/07/19 History [Ocuvite with Lutein Tablet] Lisinopril [Zestril] 20 mg PO DAILY #30 tab 10/05/17 04/07/19 Rx amLODIPine [Norvasc] 10 mg PO DAILY #30 tab 10/05/17 04/07/19 Rx Albuterol Nebulized [Ventolin 2.5 mg INHALATION RT-QID 03/29/19 04/07/19 History Nebulized] Budesonide/Formoterol Fumarate 1 puff INHALATION RT-BID 03/29/19 04/07/19 His tory [Symbicort 160-4.5 Mcg Inhaler] Montelukast [Singulair] 10 mg PO DAILY 03/29/19 04/07/19 History metFORMIN HCL [Glucophage Xr] 750 mg PO BID 03/29/19 04/07/19 History Atorvastatin [Lipitor] 80 mg PO DAILY #30 tab 04/01/19 04/07/19 Rx Cyanocobalamin [Vitamin B-12] 2,500 mcg PO DAILY #150 tab 04/01/19 04/07/19 Rx Nitroglycerin Sl Tabs [Nitrostat] 0.4 mg SUBLINGUAL Q5M PRN #20 tab 04/01/19 04/07/19 Rx Thiamine [Vitamin B-1] 100 mg PO DAILY #10 tab 04/01/19 04/07/19 Rx Allergies Allergy/AdvReac Type Severity Reaction Status Date / Time No Known Allergies Allergy Verified 04/07/19 07:29 Physical Exam Vitals: Vital Signs Temp Pulse Pulse Resp BP BP Pulse Ox 04/07/19 15:04 97.9 F 64 20 141/70 100 04/07/19 12:26 73 20 163/84 100 04/07/19 11:00 78 17 161/81 04/07/19 10:30 76 19 175/86 100 04/07/19 10:00 72 18 168/85 99 04/07/19 09:30 64 16 148/79 100 04/07/19 09:15 63 16 148/76 100 04/07/19 09:00 64 17 148/74 100 04/07/19 08:45 68 18 143/75 100 04/07/19 08:30 16 154/88 99 04/07/19 08:15 77 15 145/76 100 04/07/19 08:00 76 17 145/78 98 04/07/19 07:45 78 18 155/77 99 04/07/19 07:30 81 16 171/88 99 04/07/19 07:15 85 19 169/85 99 04/07/19 06:36 98.1 F 93 18 183/97 97 Intake and Output 04/07/19 04/07/19 04/07/19 06:59 14:59 22:59 Intake Total 400 Balance 400 Intake: Intake, IV Titration 400 Amount Sodium Chloride 0.9% 1, 400 000 ml @ 100 mls/hr IV . Q10H [facility] Rx#:[id number] Other: Weight 69.853 kg GENERAL EXAM: Alert, oriented 3, 73-year-old white female, somewhat slow to respond, but no evidence of aphasia or dysarthria comfortable in no apparent distress. HEAD: Normocephalic/atraumatic. EYES: Normal reaction of pupils, equal size. Conjunctiva pink, sclera white. NOSE: Clear with pink turbinates. THROAT: No erythema or exudates. NECK: No masses, no JVD, no thyroid enlargement, no adenopathy. CHEST: No chest wall deformity. Symmetrical expansion. LUNGS: Equal air entry with no crackles, wheeze, rhonchi or dullness. CVS: Regular rate and rhythm, normal S1 and S2, no gallops, no murmurs, no rubs ABDOMEN: Soft, nontender. No hepatosplenomegaly, normal bowel sounds, no guarding or rigidity. EXTREMITIES: No clubbing, no edema, no cyanosis, 2+ pulses and upper and lower extremities. MUSCULOSKELETAL: Muscle strength and tone normal. SPINE: No scoliosis or deformity SKIN: No rashes CENTRAL NERVOUS SYSTEM: Alert and oriented -3. No focal deficits, tone is normal in all 4 extremities. PSYCHIATRIC: Alert and oriented -3. Appropriate affect. Intact judgment and insight. Results - Laboratory Findings CBC and BMP: 04/07/19 06:42 04/07/19 06:42 PT/INR, D-dimer PT 9.8 sec (9.0-12.0) 04/07/19 06:42 INR 0.9 (<1.2) 04/07/19 06:42 Abnormal lab findings: Abnormal Labs 04/07/19 04/07/19 04/07/19 06:36 06:42 06:42 APTT 21.3 L Chloride 108 H Creatinine 1.19 H Glucose 108 H POC Glucose (mg/dL) 130 H Ur Leukocyte Esterase Urine WBC Urine Bacteria 04/07/19 08:18 APTT Chloride Creatinine Glucose POC Glucose (mg/dL) Ur Leukocyte Esterase Moderate H Urine WBC 25 H Urine Bacteria Rare H - Diagnostic Findings Chest x-ray: report reviewed, image reviewed Additional studies: Results of the chest x-ray, EKG, CT angiography, EEG reviewed Assessment and Plan Plan: Assessment: #1. Recurrent episodes of syncope, unresponsiveness, of unclear etiology, rule out CVA/TIA, rule out seizures #2. Mild intermittent bronchial asthma, currently stable #3. Recent hospitalization for episode of syncope, and a fall out of bed, brain CT was negative, carotid Doppler ultrasound showed moderate plaque, but no hemodynamically significant stenosis, echo showed low normal EF of 50-55% #4. Diabetes mellitus type 2 #5. Hypertension #6. Hyperlipidemia #7. Lifetime nonsmoker #8. Macular degeneration Plan: The pulmonary perspective patient is stable, her asthma is under good control, will reorder patient's home inhalers. Patient is undergoing neurologic evaluation for recurrent episodes of syncope. Chest x-ray showed no acute pulmonary findings. Vital signs are stable. I performed a history & physical examination of the patient and discussed their management with my nurse practitioner, Xi Smyth. I reviewed the nurse practitioner's note and agree with the documented findings and plan of care. Lung sounds are positive for clear breath sounds. The findings and the impression was discussed with the patient. I attest to the documentation by the nurse practitioner. Time with Patient: Greater than 30
[2019-04-07] MEDS: metFORMIN 500 MG TAB PO SCH (18:27)
[2019-04-07] MEDS: ALBUTEROL NEBULIZED 2.5 MG/3 ML INHALATION SCH ×2 (18:28→20:16)
[2019-04-07] MEDS: SYMBICORT 160-4.5 MCG INHALER INHALATION SCH (20:16)
[2019-04-07] MEDS: DORZOLAMIDE HCL 2% DROPS 10 ML BTL BOTH EYES SCH (21:05)
[2019-04-08 06:15] LABS: Glucose,Whole Blood 123 mg/dL (75-99)
[2019-04-08 06:38] LABS: HCT 30.6 % (34.0-46.0); HGB 10.3 gm/dL (11.4-16.0); MCH 31.1 pg (25.0-35.0); MCHC 33.7 g/dL (31.0-37.0); MCV 92.2 fL (80.0-100.0); Mean Platelet Volume 7.1; Platelet Count 278 k/uL (150-450); RBC 3.32 m/uL (3.80-5.40); RDW 13.4 % (11.5-15.5); WBC 8.6 k/uL (3.8-10.6)
[2019-04-08] MEDS: metFORMIN 500 MG TAB PO SCH ×3 (06:45→16:43)
[2019-04-08] MEDS: SODIUM CHLORIDE 0.9% 1,000 ML IV SCH ×3 (06:45→23:13)
[2019-04-08 07:06] LABS: Calcium 8.5 mg/dL (8.4-10.2); Potassium 3.6 mmol/L (3.5-5.1)
[2019-04-08] MEDS: ALBUTEROL NEBULIZED 2.5 MG/3 ML INHALATION SCH ×4 (08:00→20:17)
[2019-04-08] MEDS: SYMBICORT 160-4.5 MCG INHALER INHALATION SCH ×3 (08:08→20:17)
[2019-04-08] MEDS: amLODIPine 10 MG TAB PO SCH (08:22)
[2019-04-08] MEDS: DORZOLAMIDE HCL 2% DROPS 10 ML BTL BOTH EYES SCH ×2 (08:22→20:53)
[2019-04-08] MEDS: MONTELUKAST 10 MG TAB PO SCH (08:22)
[2019-04-08] MEDS: ASPIRIN 81 MG PO SCH (08:22)
[2019-04-08] MEDS: THIAMINE 100 MG TAB PO SCH (08:22)
[2019-04-08] MEDS: LISINOPRIL 20 MG TAB PO SCH (08:22)
[2019-04-08] MEDS: ATORVASTATIN 80 MG TAB PO SCH (08:22)
[2019-04-08] MEDS: VIT A,C & E-LUTEIN-MINERALS 1 EACH TAB PO SCH (08:22)
[2019-04-08] MEDS: HEPARIN SODIUM,PORCINE 5,000 UNIT/ML 1 ML VIAL SQ SCH ×3 (08:23→23:13)
[2019-04-08] MEDS ORDERED: ASPIRIN 325 MG TAB PO SCH (09:00)
[2019-04-08 11:40] LABS: Glucose,Whole Blood 178 mg/dL (75-99)
--- NOTE | 2019-04-08 13:35 | P.PN ---
Subjective Progress Note Date: 04/08/19 Principal diagnosis: Mental status changes This is 73-year-old white female patient with history of mild intermittent bronchial asthma, diabetes mellitus, hypertension, hyperlipidemia, chronic kidney disease, chronic anemia, never smoker, who was brought into the hospital on 04/07/2019 for evaluation of decreased level of consciousness, patient was found unresponsive this morning at around 6 AM by her daughter, who came in to give her her morning medications and could not wake her up. After vigorous stimulation, 911 was called, and it was advised to place the patient on the floor and started CPR, however soon as the patient was placed on the floor she came to. She seems to be weak and confused, speech was slow, was unable to follow commands. She was last seen well last night at around 9 PM, in her usual state of health, awake and alert, with no neurologic deficits, with no speech deficits, and patient was not complaining of any shortness of breath, or any other specific complaints. She was recently hospitalized last week for altered mentation, and patient fell out of bed in the morning, and apparently patient had loss of bowel control at the time, blood sugar was not checked, patient has no prior history of seizures. Neurologic workup was negative for any evidence of CVA/TIA, carotid Dopplers showed moderate plaque bilaterally with no hemodynamically significant stenosis. Echocardiogram showed normal left ventricle systolic function with an EF of 50-55%. There was severe concentric left ventricular hypertrophy, trace tricuspid regurg, mild mitral annular calcification, mildly thickened aortic valve which was trileaflet. CT brain showed no acute hemorrhage, did show degenerative and nonspecific white matter changes most typical of remote microvascular ischemia. Patient's asthma has been stable. Patient was discharged home, and her episode of altered mentation and falling out of bed was suspected to be due to hypoglycemic episodes. She also had a mildly abnormal troponin that was not suggestive of acute coronary syndrome. Blood sugar on arrival to the hospital was 105, CT brain showed mild to moderate atrophy and probable chronic small vessel ischemia, but no acute intracranial abnormality. EKG showed normal sinus rhythm with evidence of septal infarct of undetermined age, no acute changes, CT angiography showed atheromatous plaquing bilaterally in the carotids without significant flow limiting stenosis. Chest x-ray did not reveal any acute cardiopulmonary process. Blood pressure was 183/97, room air pulse ox was 97%, heart rate was 97, normal sinus rhythm, and a temp was 98.1F. Blood work showed a white blood cell, 7.4, hemoglobin of 12.4, INR 0.9, sodium is 140, potassium is 4.1, chloride was 108, BUN was 17 and creatinine is 1.19, troponin was negative 1, SH was within normal limits, at 1.390, urinalysis showed moderate leuks, and 25 of WBC. Patient is arousable, she is answering questions, speech is slow, but no aphasia, no lateralizing deficits. She has been evaluated by neurology for recurrent episodes of unresponsiveness of unclear etiology, and EEG is pending, as well as the MRI to rule out possibility of CVA On 04/08/2019 patient seen in follow-up on selective care unit, she is more awake, she is appropriate, oriented 3, no episodes of syncope since admission, vital signs are stable, 93% on room air, afebrile, blood pressure is 170/76. No acute events overnight, MRI of the brain is pending for today. Asthma is stable, lung sounds are as a for bibasilar crackles, no wheezes. Objective - Vital Signs Vital signs: Vital Signs Temp 97.0 F L 04/08/19 12:00 Pulse 92 04/08/19 12:00 Resp 18 04/08/19 12:00 BP 170/76 04/08/19 12:00 Pulse Ox 93 L 04/08/19 12:00 Intake & Output 04/07/19 04/08/19 04/08/19 18:59 06:59 18:59 Intake Total 400 440 Output Total 1 602 Balance 400 -1 -162 Weight 67.5 kg Intake: Intake, IV Titration 400 Amount Sodium Chloride 0.9% 1, 400 000 ml @ 100 mls/hr IV . Q10H MARILIN Rx#:[id number] Oral 440 Output: Urine 600 Stool 1 2 Other: Voiding Method Toilet Toilet # Voids 1 # Bowel Movements 1 - Exam GENERAL EXAM: Alert, oriented 3, 73-year-old white female, awake and alert, in no acute distress HEAD: Normocephalic/atraumatic. EYES: Normal reaction of pupils, equal size. Conjunctiva pink, sclera white. NOSE: Clear with pink turbinates. THROAT: No erythema or exudates. NECK: No masses, no JVD, no thyroid enlargement, no adenopathy. CHEST: No chest wall deformity. Symmetrical expansion. LUNGS: Equal air entry with bibasilar crackles, wheeze, rhonchi or dullness. CVS: Regular rate and rhythm, normal S1 and S2, no gallops, no murmurs, no rubs ABDOMEN: Soft, nontender. No hepatosplenomegaly, normal bowel sounds, no guarding or rigidity. EXTREMITIES: No clubbing, no edema, no cyanosis, 2+ pulses and upper and lower extremities. MUSCULOSKELETAL: Muscle strength and tone normal. SPINE: No scoliosis or deformity SKIN: No rashes CENTRAL NERVOUS SYSTEM: Alert and oriented -3. No focal deficits, tone is normal in all 4 extremities. PSYCHIATRIC: Alert and oriented -3. Appropriate affect. Intact judgment and insight. - Labs CBC & Chem 7: 04/08/19 06:27 04/08/19 06:27 Labs: Abnormal Lab Results - Last 24 Hours (Table) 04/08/19 04/08/19 04/08/19 Range/Units 05:55 06:27 06:27 RBC 3.32 L (3.80-5.40) m/uL Hgb 10.3 L (11.4-16.0) gm/dL Hct 30.6 L (34.0-46.0) % Chloride 110 H (98-107) mmol/L Glucose 103 H (74-99) mg/dL POC Glucose (mg/dL) 123 H (75-99) mg/dL HDL Cholesterol 37 L (40-60) mg/dL 04/08/19 Range/Units 11:38 RBC (3.80-5.40) m/uL Hgb (11.4-16.0) gm/dL Hct (34.0-46.0) % Chloride (98-107) mmol/L Glucose (74-99) mg/dL POC Glucose (mg/dL) 178 H (75-99) mg/dL HDL Cholesterol (40-60) mg/dL Microbiology - Last 24 Hours (Table) 04/07/19 08:18 Urine Culture - Final Urine,Voided Assessment and Plan Plan: Assessment: #1. Recurrent episodes of syncope, unresponsiveness, of unclear etiology, rule out CVA/TIA, rule out seizures #2. Mild intermittent bronchial asthma, currently stable #3. Recent hospitalization for episode of syncope, and a fall out of bed, brain CT was negative, carotid Doppler ultrasound showed moderate plaque, but no hemodynamically significant stenosis, echo showed low normal EF of 50-55% #4. Diabetes mellitus type 2 #5. Hypertension #6. Hyperlipidemia #7. Lifetime nonsmoker #8. Macular degeneration Plan: Patient remains stable from pulmonary perspective, no recurrent episodes of syncope while inpatient, no specific complaints, awaiting MRI of the brain. Will sign off, and follow on as-needed basis. I performed a history & physical examination of the patient and discussed their management with my nurse practitioner, Xi Smyth. I reviewed the nurse practitioner's note and agree with the documented findings and plan of care. Lung sounds are positive for clear breath sounds. The findings and the impres reema was discussed with the patient. I attest to the documentation by the nurse practitioner. Time with Patient: Less than 30
--- NOTE | 2019-04-08 14:02 | P.DS ---
Providers Date of admission: 04/07/19 07:11 Attending physician: Karolina Saul Consults: 04/07/19 07:12 Consult Physician Routine Consulting Provider: Russel Woodruff Consult Reason/Comments: known Do you want consulting provider notified?: Yes Consult Physician Routine Consulting Provider: Xiang Do Consult Reason/Comments: cva Do you want consulting provider notified?: Yes Consult Physician Routine Consulting Provider: Kirstin Key Consult Reason/Comments: known Do you want consulting provider notified?: Yes Primary care physician: Russel [facility] Course: 72-year-old pleasant female was brought in because of an episode of unresponsiveness patient looks bit older than her age. Patient [place] with frequent visits from family members patient was recently treated for syncopal episode had an echocardiogram at that time which did not show any significant abnormality patient was brought in by daughter as patient was unresponsive and the after she woke up patient was bit confused initially they were planning underway and doing the CPR. Confusion lasted for about an hour. Never had any history of seizures. Patient is being admitted for evaluation for cerebral vascular accident cardiology valid the patient as well no further recommendations for them regarding the neurology there are no other focal neurological deficits patient doesn't have any loss of bowel or bladder continence no tongue biting. Patient had a CAT scan which did not show any significant abnormality CT angios the head and neck showed some atheromatous plaquing of the bilateral carotid bifurcation without any significant stenosis no other signs or symptoms of sepsis MRI is being obtain EEG is being updated at this time. The only significant abnormality awake and appreciate and had labs is mildly elevated serum creatinine blood pressure is not low patient although will be resumed only on an VALENCIA inhibitor hold off on amlodipine until I have but knowledge of for blood pressure trend. UA is bit abnormal but not convincing for urinary tract infection. 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 Discussed with neurology they're planning on putting her on 9 antiseizure medication discussion of which will be provided by neurology. We're awaiting MRI if MRI is negative and after evaluation by neurology patient probably will be discharged home with home care. Patient looks much better today and hoping to go home today. PHYSICAL EXAMINATION: GENERAL: The patient is alert and oriented x3, not in any acute distress. Well developed, well nourished. HEENT: Pupils are round and equally reacting to light. EOMI. No scleral icterus. No conjunctival pallor. Normocephalic, atraumatic. No pharyngeal erythema. No thyromegaly. CARDIOVASCULAR: S1 and S2 present. No murmurs, rubs, or gallops. PULMONARY: Chest is clear to auscultation, no wheezing or crackles. ABDOMEN: Soft, nontender, nondistended, normoactive bowel sounds. No palpable organomegaly. MUSCULOSKELETAL: No joint swelling or deformity. EXTREMITIES: No cyanosis, clubbing, or pedal edema. NEUROLOGICAL: Gross neurological examination did not reveal any focal deficits. She appears bit lethargic SKIN: No rashes. Assessment and Plan Plan: -Episode of unresponsiveness: Patient is being evaluated for TIA and seizure. MRI pending EEG as mentioned above. Patient will be discharged today with the above-mentioned plan -Mild acute renal related azotemia improved with IV fluids -COPD without any acute exacerbation Hyperlipidemia -Hypertension Patient Condition at Discharge: Fair Plan - Discharge Summary New Discharge Prescriptions: Continue Dorzolamide 2% [Trusopt 2%] 1 drop BOTH EYES BID Vits A,C,E/Lutein/Minerals [Ocuvite with Lutein Tablet] 1 tab PO DAILY Cholecalciferol [Vitamin D3 (25 Mcg = 1000 Iu)] 1,000 unit PO DAILY Aspirin EC [Ecotrin Low Dose] 81 mg PO DAILY Fluticasone/Salmeterol [Advair 500-50 Diskus] 1 puff INHALATION RT-BID amLODIPine [Norvasc] 10 mg PO DAILY #30 tab Lisinopril [Zestril] 20 mg PO DAILY #30 tab Budesonide/Formoterol Fumarate [Symbicort 160-4.5 Mcg Inhaler] 1 puff INHALATION RT-BID metFORMIN HCL [Glucophage Xr] 750 mg PO BID Albuterol Nebulized [Ventolin Nebulized] 2.5 mg INHALATION RT-QID Montelukast [Singulair] 10 mg PO DAILY Atorvastatin [Lipitor] 80 mg PO DAILY #30 tab Nitroglycerin Sl Tabs [Nitrostat] 0.4 mg SUBLINGUAL Q5M PRN #20 tab PRN Reason: Chest Pain Thiamine [Vitamin B-1] 100 mg PO DAILY #10 tab Cyanocobalamin [Vitamin B-12] 2,500 mcg PO DAILY #150 tab Discharge Medication List Dorzolamide 2% [Trusopt 2%] 1 drop BOTH EYES BID 06/30/16 [History] Aspirin EC [Ecotrin Low Dose] 81 mg PO DAILY 10/03/17 [History] Cholecalciferol [Vitamin D3 (25 Mcg = 1000 Iu)] 1,000 unit PO DAILY 10/03/17 [History] Fluticasone/Salmeterol [Advair 500-50 Diskus] 1 puff INHALATION RT-BID 10/03/17 [History] Vits A,C,E/Lutein/Minerals [Ocuvite with Lutein Tablet] 1 tab PO DAILY 10/03/17 [History] Lisinopril [Zestril] 20 mg PO DAILY #30 tab 10/05/17 [Rx] amLODIPine [Norvasc] 10 mg PO DAILY #30 tab 10/05/17 [Rx] Albuterol Nebulized [Ventolin Nebulized] 2.5 mg INHALATION RT-QID 03/29/19 [History] Budesonide/Formoterol Fumarate [Symbicort 160-4.5 Mcg Inhaler] 1 puff INHALATION RT-BID 03/29/19 [History] Montelukast [Singulair] 10 mg PO DAILY 03/29/19 [History] metFORMIN HCL [Glucophage Xr] 750 mg PO BID 03/29/19 [History] Atorvastatin [Lipitor] 80 mg PO DAILY #30 tab 04/01/19 [Rx] Cyanocobalamin [Vitamin B-12] 2,500 mcg PO DAILY #150 tab 04/01/19 [Rx] Nitroglycerin Sl Tabs [Nitrostat] 0.4 mg SUBLINGUAL Q5M PRN #20 tab 04/01/19 [Rx] Thiamine [Vitamin B-1] 100 mg PO DAILY #10 tab 04/01/19 [Rx] Follow up Appointment(s[facility] - As Needed Russel Woodruff DO [Primary Care Provider] - 04/22/19 8:30 am (Thursday -earliest available appointment) Patient Instructions/Handouts: Altered Mental Status (ED)
[2019-04-08 16:45] LABS: Glucose,Whole Blood 194 mg/dL (75-99)
--- NOTE | 2019-04-08 20:10 | MR ---
EXAMINATION TYPE: MR brain wo/w con DATE OF EXAM: 04/08/2019 COMPARISON: CT brain yesterday HISTORY: Episodes of unresponsiveness, CVA vs seizure TECHNIQUE: Multiplanar, multisequence images of the brain and brainstem is performed without and with IV contras t, utilizing 7 mL intravenous Gadavist . FINDINGS: There is diffuse cerebral cortical atrophy. There is no mass effect nor midline shift. Ther e is no sign of intracranial hemorrhage. Corpus callosum is intact. There is mild thinning of the cor pus callosum. On the FLAIR images there is diffuse increased signal in the periventricular white jody er and subcortical white matter of both cerebral hemispheres. On the diffusion images there is a 1 cm focus of subcortical Increased signal in the right posterior frontal lobe. There is a second similar medial 6 mm subcortical focus in the right posterior frontal lobe. 5 mm similar focus in the medial left thalamus. This could be acute lacunar infarcts. Sella turcica appears normal. The brainstem appears intact. 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 Possible acute white matter lacunar infarcts right posterior frontal lobe and left thalamus. No e vidence of acute cortical infarct.
[2019-04-08 21:11] LABS: Glucose,Whole Blood 168 mg/dL (75-99)
--- NOTE | 2019-04-08 21:57 | P.PN ---
Subjective Progress Note Date: 04/08/19 Patient denies headache, offers no complaints. Denies any new neurological symptoms. Objective - Vital Signs Vital signs: Vital Signs Temp 98.3 F 04/08/19 16:00 Pulse 88 04/08/19 20:26 Resp 16 04/08/19 16:00 BP 148/71 04/08/19 16:00 Pulse Ox 95 04/08/19 16:00 Intake & Output 04/08/19 04/08/19 04/09/19 06:59 18:59 06:59 Intake Total 1280 Output Total 1 602 Balance -1 678 Weight 67.5 kg Intake: IV 600 Sodium Chloride 0.9% 1, 600 000 ml @ 100 mls/hr IV . Q10H MARILIN Rx#:[id number] Oral 680 Output: Urine 600 Stool 1 2 Other: Voiding Method Toilet Toilet # Voids 1 1 # Bowel Movements 1 - Exam Patient is awake, but has slow mentation. Her speech and language functions are normal. Face is symmetric. Muscle strength testing showed mild right pronation no drift. The strength is normal. No obvious ataxia. Tone and bulk of muscles normal. - Labs CBC & Chem 7: 04/08/19 06:27 04/08/19 06:27 Labs: Abnormal Lab Results - Last 24 Hours (Table) 04/08/19 04/08/19 04/08/19 Range/Units 05:55 06:27 06:27 RBC 3.32 L (3.80-5.40) m/uL Hgb 10.3 L (11.4-16.0) gm/dL Hct 30.6 L (34.0-46.0) % Chloride 110 H (98-107) mmol/L Glucose 103 H (74-99) mg/dL POC Glucose (mg/dL) 123 H (75-99) mg/dL HDL Cholesterol 37 L (40-60) mg/dL 04/08/19 04/08/19 04/08/19 Range/Units 11:38 16:42 21:09 RBC (3.80-5.40) m/uL Hgb (11.4-16.0) gm/dL Hct (34.0-46.0) % Chloride (98-107) mmol/L Glucose (74-99) mg/dL POC Glucose (mg/dL) 178 H 194 H 168 H (75-99) mg/dL HDL Cholesterol (40-60) mg/dL Microbiology - Last 24 Hours (Table) 04/07/19 08:18 Urine Culture - Final Urine,Voided Assessment and Plan Assessment: * 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 * Diabetes, well-controlled, last A1c 6.2 on 03/29/2019 * Hyperlipidemia * B12 deficiency Plan: * MRI of the brain showed extensive coalescent white matter disease probably related to chronic small vessel ischemia. Possible acute white matter lacunar infarcts right posterior frontal lobe and left thalamus. No evidence of acute cortical infarct.. * EEG showed background slowing, consistent with encephalopathy. Intermittent left hemispheric slowing and some sharp waves, suggest focal cortical neuronal dysfunction and may suggest underlying cortical irritability and tendency for seizures. He was technically limited due to movement and myogenic artifact. Clinical correlation is strongly recommended.. * Fasting a.m. lipid panel showed cholesterol 99, LDL 37, HDL 48. * We will add Plavix 75 mg due to acute CVA, while being on aspirin. Continue statins. * PT OT evaluate gait.
[2019-04-08] MEDS: CLOPIDOGREL 75 MG TAB PO SCH (23:13)
[2019-04-09] MEDS: metFORMIN 500 MG TAB PO SCH (06:08)
[2019-04-09 06:19] LABS: Glucose,Whole Blood 119 mg/dL (75-99)
[2019-04-09 07:56] VITALS: BP 147/72; PULSE 91; RESP 18; TEMP 97.9
[2019-04-09] MEDS: HEPARIN SODIUM,PORCINE 5,000 UNIT/ML 1 ML VIAL SQ SCH (08:01)
[2019-04-09] MEDS: CLOPIDOGREL 75 MG TAB PO SCH (08:06)
[2019-04-09] MEDS: ATORVASTATIN 80 MG TAB PO SCH (08:07)
[2019-04-09] MEDS: THIAMINE 100 MG TAB PO SCH (08:07)
[2019-04-09] MEDS: amLODIPine 10 MG TAB PO SCH (08:07)
[2019-04-09] MEDS: MONTELUKAST 10 MG TAB PO SCH (08:07)
[2019-04-09] MEDS: ASPIRIN 81 MG PO SCH (08:07)
[2019-04-09] MEDS: VIT A,C & E-LUTEIN-MINERALS 1 EACH TAB PO SCH (08:07)
[2019-04-09] MEDS: LISINOPRIL 20 MG TAB PO SCH (08:07)
[2019-04-09] MEDS: DORZOLAMIDE HCL 2% DROPS 10 ML BTL BOTH EYES SCH (08:08)
[2019-04-09] MEDS: SODIUM CHLORIDE 0.9% 1,000 ML IV SCH (08:08)
[2019-04-09] MEDS: SYMBICORT 160-4.5 MCG INHALER INHALATION SCH (08:55)
[2019-04-09] MEDS: ALBUTEROL NEBULIZED 2.5 MG/3 ML INHALATION SCH (08:55)
--- NOTE | 2019-04-09 10:01 | P.DS ---
Providers Date of admission: 04/07/19 07:11 Attending physician: Karolina Saul Consults: 04/07/19 07:12 Consult Physician Routine Consulting Provider: Russel Woodruff Consult Reason/Comments: known Do you want consulting provider notified?: Yes Consult Physician Routine Consulting Provider: Xiang Do Consult Reason/Comments: cva Do you want consulting provider notified?: Yes Consult Physician Routine Consulting Provider: Kirstin Key Consult Reason/Comments: known Do you want consulting provider notified?: Yes Primary care physician: Russel Woodruff [facility] Course: Patient's MRI did show some acute lacunar infarcts in posterior frontal lobe on the right side and thalamus on the left side. Patient appears to have some vascular dementia too. Neurology is recommending adding Plavix rest of the workup is negative patient will follow-up with PCP as an outpatient patient and is declining subacute rehabilitation patient will be discharged home with home care. Patient is already on statin. PHYSICAL EXAMINATION: GENERAL: The patient is alert and oriented x3, not in any acute distress. Well developed, well nourished. HEENT: Pupils are round and equally reacting to light. EOMI. No scleral icterus. No conjunctival pallor. Normocephalic, atraumatic. No pharyngeal erythema. No thyromegaly. CARDIOVASCULAR: S1 and S2 present. No murmurs, rubs, or gallops. PULMONARY: Chest is clear to auscultation, no wheezing or crackles. ABDOMEN: Soft, nontender, nondistended, normoactive bowel sounds. No palpable organomegaly. MUSCULOSKELETAL: No joint swelling or deformity. EXTREMITIES: No cyanosis, clubbing, or pedal edema. NEUROLOGICAL: Gross neurological examination did not reveal any focal deficits. She appears bit lethargic SKIN: No rashes. Please refer to my dictation of discharge summary from yesterday for further details Patient Condition at Discharge: Fair Plan - Discharge Summary New Discharge Prescriptions: New Clopidogrel Bisulfate [Plavix] 75 mg PO DAILY #30 tab Continue Dorzolamide 2% [Trusopt 2%] 1 drop BOTH EYES BID Vits A,C,E/Lutein/Minerals [Ocuvite with Lutein Tablet] 1 tab PO DAILY Cholecalciferol [Vitamin D3 (25 Mcg = 1000 Iu)] 1,000 unit PO DAILY Aspirin EC [Ecotrin Low Dose] 81 mg PO DAILY Fluticasone/Salmeterol [Advair 500-50 Diskus] 1 puff INHALATION RT-BID amLODIPine [Norvasc] 10 mg PO DAILY #30 tab Lisinopril [Zestril] 20 mg PO DAILY #30 tab Budesonide/Formoterol Fumarate [Symbicort 160-4.5 Mcg Inhaler] 1 puff INHALATION RT-BID metFORMIN HCL [Glucophage Xr] 750 mg PO BID Albuterol Nebulized [Ventolin Nebulized] 2.5 mg INHALATION RT-QID Montelukast [Singulair] 10 mg PO DAILY Atorvastatin [Lipitor] 80 mg PO DAILY #30 tab Nitroglycerin Sl Tabs [Nitrostat] 0.4 mg SUBLINGUAL Q5M PRN #20 tab PRN Reason: Chest Pain Thiamine [Vitamin B-1] 100 mg PO DAILY #10 tab Cyanocobalamin [Vitamin B-12] 2,500 mcg PO DAILY #150 tab Discharge Medication List Dorzolamide 2% [Trusopt 2%] 1 drop BOTH EYES BID 06/30/16 [History] Aspirin EC [Ecotrin Low Dose] 81 mg PO DAILY 10/03/17 [History] Cholecalciferol [Vitamin D3 (25 Mcg = 1000 Iu)] 1,000 unit PO DAILY 10/03/17 [History] Fluticasone/Salmeterol [Advair 500-50 Diskus] 1 puff INHALATION RT-BID 10/03/17 [History] Vits A,C,E/Lutein/Minerals [Ocuvite with Lutein Tablet] 1 tab PO DAILY 10/03/17 [History] Lisinopril [Zestril] 20 mg PO DAILY #30 tab 10/05/17 [Rx] amLODIPine [Norvasc] 10 mg PO DAILY #30 tab 10/05/17 [Rx] Albuterol Nebulized [Ventolin Nebulized] 2.5 mg INHALATION RT-QID 03/29/19 [History] Budesonide/Formoterol Fumarate [Symbicort 160-4.5 Mcg Inhaler] 1 puff INHALATION RT-BID 03/29/19 [History] Montelukast [Singulair] 10 mg PO DAILY 03/29/19 [History] metFORMIN HCL [Glucophage Xr] 750 mg PO BID 03/29/19 [History] Atorvastatin [Lipitor] 80 mg PO DAILY #30 tab 04/01/19 [Rx] Cyanocobalamin [Vitamin B-12] 2,500 mcg PO DAILY #150 tab 04/01/19 [Rx] Nitroglycerin Sl Tabs [Nitrostat] 0.4 mg SUBLINGUAL Q5M PRN #20 tab 04/01/19 [Rx] Thiamine [Vitamin B-1] 100 mg PO DAILY #10 tab 04/01/19 [Rx] Clopidogrel Bisulfate [Plavix] 75 mg PO DAILY #30 tab 04/09/19 [Rx] Follow up Appointment(s)/Referral(s): [facility], [NON-STAFF] - As Needed Russel Woodruff DO [Primary Care Provider] - 04/22/19 8:30 am (Thursday -earliest available appointment) Patient Instructions/Handouts: Altered Mental Status (ED) Discharge Disposition: HOME WITH HOME HEALTH SERVICES
--- NOTE | 2019-04-11 16:06 | CDI ---
Documentation Clarification Form Date: 04/11/19 From: Shima Darren Phone: If questions call Darlene Velazquez @ [phone], Hours-8:30 am & 5 pm [place] Admit Date: 04/07/2019 7:11:00 AM Patient Name: Kena Espinal Visit Number: [id number] Discharge Date: 04/09/2019 10:53:00 AM ATTENTION: The Clinical Documentation Specialists (CDI) and [facility] Coding Staff appreciate your assistance in clarifying documentation. Please respond to the clarification below the line at the bottom and electronically sign. The CDI & [facility] Coding staff will review the response and follow-up if needed. Please note: Queries are made part of the Legal Health Record. If you have any questions, please contact the author of this message via ITS. Dr. Padmini [place] The neuro consult noted the pt presented with unresponsiveness, started on O2 in the ER and pt mentation improved. ED note documents "Delirium due to general medical condition, dementia, altered mental state, weakness, CVA" History/Risk Factors: lacunar infarction Clinical Indicators: EEG ordered to determine episode of unresponsiveness, rule out seizures. EEG: EEG showed background slowing, consistent with encephalopathy. Intermittent left hemispheric slowing and sharp waves, suggest focal cortical neuronal dysfunction and may suggest underlying cortical irritability and tendency for seizures. CT: Extensive coalescent white matter disease probably related to chronic small vessel ischemia.Possible acute white matter lacunar infarcts right posterior frontal lobe and left thalamus.No evidence of acute cortical infarct. Treatment: Plavix & statin In your professional opinion, please clarify the etiology of the Altered Mental Status, if known. Delirium (specify cause): Dementia (if know, specify Type and if with/without Behavioral Disturbance) Encephalopathy (specify Type and Underlying Medical Illness) Other condition (please specify) Unable to determine see discharge summary MTDD
== END 2019-04-09 10:53 | disposition home health service (06) | DRG 65 ==
LOC: EC 06:33 → 3SCARD 07:11
PROVIDERS: ADMIT Hospitalist; ATTEND Hospitalist
DX: I63.81 Other cerebral infarction due to occlusion or stenosis of small artery (principal); F05 Delirium due to known physiological condition; N17.9 Acute kidney failure, unspecified; E11.22 Type 2 diabetes mellitus with diabetic chronic kidney disease; E86.0 Dehydration; J44.9 Chronic obstructive pulmonary disease, unspecified; R47.01 Aphasia; F01.50 Vascular dementia, unspecified severity, without behavioral disturbance, psychotic disturbance, mood disturbance, and anxiety; I13.10 Hypertensive heart and chronic kidney disease without heart failure, with stage 1 through stage 4 chronic kidney disease, or unspecified chronic kidney disease; R40.2140 Coma scale, eyes open, spontaneous, unspecified time; D64.9 Anemia, unspecified; R40.2360 Coma scale, best motor response, obeys commands, unspecified time; R40.2250 Coma scale, best verbal response, oriented, unspecified time; R29.712 NIHSS score 12; E78.5 Hyperlipidemia, unspecified; N18.9 Chronic kidney disease, unspecified; H40.9 Unspecified glaucoma; H35.30 Unspecified macular degeneration; E53.8 Deficiency of other specified B group vitamins; R77.8 Other specified abnormalities of plasma proteins; Z79.82 Long term (current) use of aspirin; Z79.02 Long term (current) use of antithrombotics/antiplatelets; Z79.51 Long term (current) use of inhaled steroids; Z79.84 Long term (current) use of oral hypoglycemic drugs; Z79.899 Other long term (current) drug therapy; Z82.49 Family history of ischemic heart disease and other diseases of the circulatory system
CPT/HCPCS: 36415; 70450; 70496; 70498; 70553; 71046; 80048; 80053; 80061; 81001; 82550; 83605; 83735; 84100; 84443; 84484; 85025; 85027; 85610; 85730; 87086; 93005; 94640; 94760; 95819; 96360; 96372; 99285

== ENCOUNTER → 2019-05-04 | Outpatient (CLI) | payer MEDICARE ==
--- NOTE | 2019-06-06 12:51 | EM ---
EVENT MONITOR 30-DAY EVENT MONITOR: Patient's event monitor rhythm strips were reviewed. There is evidence of predominant sinus with some episodes of sinus rhythm were seen with some IVCD type picture. There is no evidence of any significant tachy or bradyarrhythmia on this event monitor study. CONCLUSION: Unremarkable event monitor recordings noted. No significant tachy or bradyarrhythmia was noted. EMERSON / ELVAN: [id number] /
== END | disposition home or self-care (01) ==
LOC: RADECHMAIN 12:09
PROVIDERS: ATTEND Psychiatry & Neurology Neurology
DX: I63.9 Cerebral infarction, unspecified (principal)
CPT/HCPCS: 93270

== ENCOUNTER → 2019-05-18 | Outpatient (CLI) | payer MEDICARE ==
[2019-05-18 17:49] LABS: African American GFR (CKD) 42.2 (60.0-200.0); Albumin 3.9 g/dL (3.80-4.90); Albumin/Globulin Ratio 1.77 (1.60-3.17); Anion Gap 11.2 mmol/L (4.00-12.00); BUN/Creat Ratio 17.14 Ratio (12.00-20.00); Calcium 9.2 mg/dL (8.7-10.3); Carbon Dioxide 21.8 mmol/L (21.6-31.8); Globulin 2.2 g/dL (1.6-3.3); LDL Cholesterol,Calculated 71.6 mg/dL (0.0-131.0); Total Bilirubin 0.4 mg/dL (0.3-1.2); Total Protein 6.1 g/dL (6.2-8.2); VLDL Calculation 11.4 mg/dL (5.00-40.00)
== END | disposition home or self-care (01) ==
LOC: LABWHC1 08:25
PROVIDERS: ATTEND Internal Medicine Interventional Cardiology
DX: E78.2 Mixed hyperlipidemia (principal)
CPT/HCPCS: 36415; 80053; 80061

== ENCOUNTER → 2020-07-25 | Outpatient (CLI) | payer MEDICARE ==
[2020-07-25 08:59] LABS: Basophils # (A) 0.1 k/uL (0-0.2); Basophils % (A) 1 %; Eosinophils # (A) 0.4 k/uL (0-0.7); Eosinophils % (A) 4 %; HCT 39.4 % (34.0-46.0); HGB 12.5 gm/dL (11.4-16.0); Lymphocytes # (A) 3.3 k/uL (1.0-4.8); Lymphocytes % (A) 34 %; MCH 30.8 pg (25.0-35.0); MCHC 31.9 g/dL (31.0-37.0); MCV 96.5 fL (80.0-100.0); Mean Platelet Volume 6.6; Monocytes # (A) 0.7 k/uL (0-1.0); Monocytes % (A) 7 %; Neutrophils # (A) 5.1 k/uL (1.3-7.7); Neutrophils % (A) 53 %; Platelet Count 290 k/uL (150-450); RBC 4.08 m/uL (3.80-5.40); RDW 12.3 % (11.5-15.5); WBC 9.7 k/uL (3.8-10.6)
[2020-07-25 17:38] LABS: ALT 28 U/L (8-44); AST 27 U/L (13-35); African American GFR (CKD) 45.8 (60.0-200.0); Albumin/Globulin Ratio 1.77 (1.60-3.17); Alkaline Phosphatase 99 U/L (41-126); BUN/Creat Ratio 24.62 Ratio (12.00-20.00); Calcium 9.1 mg/dL (8.7-10.3); Carbon Dioxide 26.1 mmol/L (21.6-31.8); Chloride 106 mmol/L (96-109); Cholesterol 120 mg/dL (0-200); Globulin 2.2 g/dL (1.6-3.3); Glucose 149 mg/dL (70-110); LDL Cholesterol,Calculated 69.2 mg/dL (0.0-131.0); Non-African American GFR(CKD) 39.5 (60.0-200.0); Sodium 139 mmol/L (135-145); Total Bilirubin 0.6 mg/dL (0.3-1.2); Total Protein 6.1 g/dL (6.2-8.2)
[2020-07-25 18:57] LABS: Hemoglobin A1C 7.9 % (4.0-6.0)
[2020-07-25 22:38] LABS: Vitamin B12 >4000.0 pg/mL (211-911)
== END | disposition home or self-care (01) ==
LOC: LABWHC1 07:33
PROVIDERS: ATTEND Internal Medicine Critical Care Medicine
DX: I10 Essential (primary) hypertension (principal); D64.9 Anemia, unspecified; E11.9 Type 2 diabetes mellitus without complications; J45.909 Unspecified asthma, uncomplicated; E78.5 Hyperlipidemia, unspecified
CPT/HCPCS: 36415; 80053; 80061; 82306; 82607; 83036; 84439; 84443; 85025

== ENCOUNTER 2021-04-19 08:44 | Emergency (ER) | payer MEDICARE ==
[~2021-04-19 08:44] MED LIST changes: -COSYNTROPIN 0.25 MG VIAL IM NR; -COSYNTROPIN 0.25 MG VIAL IVP NR; +EPINEPHrine 10 ML SYRINGE (0.1 MG/ML) ONE; -SODIUM CHLORIDE 0.9% 500 ML in EMPTY BAG 1 BAG IV PRN
[2021-04-19] MEDS ORDERED: SODIUM CHLORIDE 0.9% 1,000 ML IV STA (08:51)
--- NOTE | 2021-04-19 08:56 | ED ---
General Adult HPI - General Stated complaint: Cardiac Arrest Time Seen by Provider: 04/19/21 08:50 Source: EMS, RN notes reviewed, old records reviewed Mode of arrival: EMS Limitations: altered mental status, physical limitation - History of Present Illness Initial comments: Patient is a 75-year-old female presenting to the emergency department with cardiac arrest. Patient last seen well around 6:50 AM. Patient was found at 752 by family and bystander CPR was started. Patient did have return of circulation for about 5 minutes otherwise CPR had been done from 752 until the time of arrival. Patient has received 5 epinephrine by EMS. Rhythm was found to be either PEA or asystole. Patient remains unresponsive and unable to provide any information. - Related Data Home Medications Medication Instructions Recorded Confirmed Dorzolamide 2% [Trusopt 2%] 1 drop BOTH EYES BID 06/30/16 04/07/19 Aspirin EC [Ecotrin Low Dose] 81 mg PO DAILY 10/03/17 04/07/19 Cholecalciferol [Vitamin D3 (25 1,000 unit PO DAILY 10/03/17 04/07/19 Mcg = 1000 Iu)] Fluticasone/Salmeterol [Advair 1 puff INHALATION RT-BID 10/03/17 04/07/19 500-50 Diskus] Vits A,C,E/Lutein/Minerals 1 tab PO DAILY 10/03/17 04/07/19 [Ocuvite with Lutein Tablet] Albuterol Nebulized [Ventolin 2.5 mg INHALATION RT-QID 03/29/19 04/07/19 Nebulized] Budesonide/Formoterol Fumarate 1 puff INHALATION RT-BID 03/29/19 04/07/19 [Symbicort 160-4.5 Mcg Inhaler] Montelukast [Singulair] 10 mg PO DAILY 03/29/19 04/07/19 metFORMIN HCL [Glucophage Xr] 750 mg PO BID 03/29/19 04/07/19 Previous Rx's Medication Instructions Recorded amLODIPine [Norvasc] 10 mg PO DAILY #30 tab 10/05/17 lisinopriL [Zestril] 20 mg PO DAILY #30 tab 10/05/17 Atorvastatin [Lipitor] 80 mg PO DAILY #30 tab 04/01/19 Cyanocobalamin [Vitamin B-12] 2,500 mcg PO DAILY #150 tab 04/01/19 Nitroglycerin Sl Tabs [Nitrostat] 0.4 mg SUBLINGUAL Q5M PRN #20 tab 04/01/19 Thiamine [Vitamin B-1] 100 mg PO DAILY #10 tab 04/01/19 Clopidogrel Bisulfate [Plavix] 75 mg PO DAILY #30 tab 04/09/19 Allergies Allergy/AdvReac Type Severity Reaction Status Date / Time No Known Allergies Allergy Verified 04/07/19 07:29 Review of Systems ROS Statement: Those systems with pertinent positive or pertinent negative responses have been documented in the HPI. ROS Other: All systems not noted in ROS Statement are negative. Limitations: ROS unobtainable due to patients medical condition Past Medical History Past Medical History: Asthma, COPD, Diabetes Mellitus, Hyperlipidemia, Hyper tension Additional Past Medical History / Comment(s): Chronic renal failure, bronchial asthma, chronic anemia, macular degeneration, glaucoma , hypertension, hyperlipidemia History of Any Multi-Drug Resistant Organisms: None Reported Past Surgical History: No Surgical Hx Reported Past Anesthesia/Blood Transfusion Reactions: No Reported Reaction Past Psychological History: No Psychological Hx Reported Past Alcohol Use History: None Reported Past Drug Use History: None Reported - Past Family History Mother Family Medical History: CVA/TIA Father Family Medical History: Coronary Artery Disease (CAD) General Exam Limitations: altered mental status, physical limitation General appearance: obtunded Head exam: Present: atraumatic Eye exam: Present: other (Pupils are fixed and dilated. Pale conjunctiva) Neck exam: Present: normal inspection Respiratory exam: Present: other (No spontaneous breath sounds. Equal breath sounds with bagging insufflation.) Cardiovascular Exam: Present: other (No pulse on arrival) GI/Abdominal exam: Present: soft. Absent: tenderness Extremities exam: Present: normal inspection Neurological exam: Present: other (Unresponsive. Does not follow commands.) Expanded Eye Response: (1) no response Motor Response: (1) no motor response Verbal Response: (1) no verbal response Psychiatric exam: Present: other (Nonverbal) Skin exam: Present: normal color Course Vital Signs 04/19/21 04/19/21 04/19/21 08:51 08:54 09:00 Pulse Rate 54 L 50 L Respiratory 18 20 20 Rate Blood Pressure 98/61 56/29 04/19/21 04/19/21 09:40 09:58 Pulse Rate 35 L 0 L Respiratory 0 L Rate Blood Pressure 87/77 - Reevaluation(s) Reevaluation #1: 04/19/21 08:56 Patient received one epinephrine and placed on the monitor. Patient then did have positive pulses. Patient has had 2 blood pressures over 100 systolic. 04/19/21 09:10 Patient becoming bradycardic and hypotensive. Discussion had with family would like patient to be no code. They are aware that patient will likely pass. Nursing staff has noticed bleeding from the vagina when attempting Zhou catheter placement. 04/19/21 09:31 Patient reevaluated. Heart rate 36. Family updated. 04/19/21 09:58 Patient reevaluated. Asystole on the monitor. No heart sounds. No pulse. No spontaneous respirations. No response to pain. Pupils are fixed and dilated. Time of [address] Woodruff has been paged. 04/19/21 10:05 Dr. Woodruff notified. 04/19/21 10:07 Did also speak with mental health examiner Merlyn who does release the body. EKG Findings - EKG Comments: EKG Findings:: Irregular narrow complex rhythm with a rate of 56. QRS 150. QT 434. QTC 418. Left axis. Right bundle branch block. Nonspecific ST-T. Medical Decision Making - Lab Data Result diagrams: 04/19/21 09:00 04/19/21 09:00 Lab Results 04/19/21 04/19/21 Range/Units 09:00 09:00 WBC 34.2 H (3.8-10.6) k/uL RBC 1.23 L (3.80-5.40) m/uL Hgb 3.4 L* (11.4-16.0) gm/dL Hct 13.7 L* (34.0-46.0) % MCV 111.4 H (80.0-100.0) fL MCH 27.6 (25.0-35.0) pg MCHC 24.8 L (31.0-37.0) g/dL RDW 16.5 H (11.5-15.5) % Plt Count 282 (150-450) k/uL MPV 8.0 Neutrophils % (Manual) 53 % Band Neuts % (Manual) 3 % Lymphocytes % (Manual) 43 % Monocytes % (Manual) 1 % Neutrophils # (Manual) 19.10 H (1.3-7.7) k/uL Lymphocytes # (Manual) 14.71 H (1.0-4.8) k/uL Monocytes # (Manual) 0.34 (0-1.0) k/uL Nucleated RBCs 0 (0-0) /100 WBC Differential Comment Manual Slide Review Performed Hypochromasia Marked Poikilocytosis (manual Present Anisocytosis Slight Macrocytosis Marked A Crenated Cell Present Sodium 145 (137-145) mmol/L Potassium 7.6 H* (3.5-5.1) mmol/L Chloride 123 H (98-107) mmol/L Carbon Dioxide <5 L* (22-30) mmol/L Anion Gap mmol/L BUN 49 H (7-17) mg/dL Creatinine 2.55 H (0.52-1.04) mg/dL Est GFR (CKD-EPI)AfAm 20 (>60 ml/min/1.73 sqM) Est GFR (CKD-EPI)NonAf 18 (>60 ml/min/1.73 sqM) Glucose 159 H (74-99) mg/dL Calcium 7.1 L (8.4-10.2) mg/dL Magnesium 2.3 (1.6-2.3) mg/dL Total Bilirubin <0.1 L (0.2-1.3) mg/dL AST 2880 H (14-36) U/L ALT 1272 H (4-34) U/L Alkaline Phosphatase 122 (38-126) U/L Total Protein 3.2 L (6.3-8.2) g/dL Albumin 1.2 L (3.5-5.0) g/dL Critical Care Time Critical Care Time: Yes Total Critical Care Time: 32 Disposition Clinical Impression: Cardiac arrest, Anemia, Vaginal bleeding Disposition: Is patient prescribed a controlled substance at d/c from ED?: No Referrals: Russel Woodruff DO [Primary Care Provider] - 1-2 days Time of Disposition: 10:07 Preliminary Cause of : Vaginal bleeding, cardiac arrest
[2021-04-19 09:19] LABS: Anisocytosis Slight; Hypochromasia Marked; MCH 27.6 pg (25.0-35.0); MCHC 24.8 g/dL (31.0-37.0); MCV 111.4 fL (80.0-100.0); Macrocytosis Marked; Platelet Count 282 k/uL (150-450); RBC 1.23 m/uL (3.80-5.40); RDW 16.5 % (11.5-15.5); WBC 34.2 k/uL (3.8-10.6)
[2021-04-19 09:27] LABS: African American GFR (CKD) 20 (>60 ml/min/1.73 sqM); Albumin 1.2 g/dL (3.5-5.0); Alkaline Phosphatase 122 U/L (38-126); Blood Urea Nitrogen 49 mg/dL (7-17); Calcium 7.1 mg/dL (8.4-10.2); Chloride 123 mmol/L (98-107); Glucose 159 mg/dL (74-99); Magnesium 2.3 mg/dL (1.6-2.3); Non-African American GFR(CKD) 18 (>60 ml/min/1.73 sqM); Sodium 145 mmol/L (137-145); Total Bilirubin <0.1 mg/dL (0.2-1.3); Total Protein 3.2 g/dL (6.3-8.2)
[2021-04-19 09:28] LABS: HGB 3.4 gm/dL (11.4-16.0)
[2021-04-19 09:29] LABS: HCT 13.7 % (34.0-46.0)
[2021-04-19 09:42] VITALS: BP 87/77
[2021-04-19 09:49] LABS: Band Neutrophils % 3 %; Lymphocytes # (M) 14.71 k/uL (1.0-4.8); Monocytes # (M) 0.34 k/uL (0-1.0); Neutrophils % (M) 53 %; Nucleated Red Blood Cells 0 /100 WBC (0-0); Total Cells Counted 100
[2021-04-19 09:51] LABS: Crenated RBC Present; Poikilocytosis (M) Present
[2021-04-19 09:53] LABS: Potassium 7.6 mmol/L (3.5-5.1)
[2021-04-19 09:54] LABS: ALT 1272 U/L (4-34); Carbon Dioxide <5 mmol/L (22-30)
[2021-04-19 09:59] VITALS: PULSE 0
[2021-04-19 10:01] VITALS: RESP 0
[2021-04-19 10:05] LABS: AST 2880 U/L (14-36)
== END 2021-04-19 11:50 | disposition expired ==
LOC: EC 08:44
DX: I46.9 Cardiac arrest, cause unspecified (principal); D64.9 Anemia, unspecified; N93.9 Abnormal uterine and vaginal bleeding, unspecified; E11.22 Type 2 diabetes mellitus with diabetic chronic kidney disease; I12.9 Hypertensive chronic kidney disease with stage 1 through stage 4 chronic kidney disease, or unspecified chronic kidney disease; N18.9 Chronic kidney disease, unspecified; J44.9 Chronic obstructive pulmonary disease, unspecified; Z79.84 Long term (current) use of oral hypoglycemic drugs; Z79.51 Long term (current) use of inhaled steroids; Z79.899 Other long term (current) drug therapy
CPT/HCPCS: 99291; 96374; 92950; 36415; 94002; 93005; 80053; 83735; 84484; 85025; J0171